=== PATIENT | female | born 1940 | race Caucasian/White ===

== ENCOUNTER → 2016-10-23 | Outpatient (CLI) | payer OTHER, MEDICARE ==
[~2016-10-23] MED LIST: ATOR-22 PO; CHOL200010 PO; MONT1TAB3 PO; MULTTAB58 PO; [UNRECOGNIZED DRUG - CODE] PO; qnasal
--- NOTE | 2016-10-23 12:50 | MAMMOGRAPHY REPORT ---
BILATERAL DIGITAL DIAGNOSTIC MAMMOGRAM TOMOSYNTHESIS WITH CAD AND TARGETED LEFT ULTRASOUND: 10/23/2016 CLINICAL HISTORY: 76-year-old woman presents for follow-up of a nodular asymmetry in the slightly me dial far posterior left breast, and a hypoechoic solid versus cystic benign appearing mass in the 5: 00 left breast on ultrasound. Also time of annual bilateral screening. TECHNIQUE: Bilateral breast tomosynthesis in addition to standard 2D mammography was performed. Curr ent study was also evaluated with a Computer Aided Detection (CAD) system. COMPARISON: Comparison is made to exams dated: 04/16/2016 ultrasound, 04/16/2016 mammogram, 10/13/19 16 mammogram, 10/11/2014 mammogram, 10/05/2013 mammogram, and 10/01/2012 mammogram - [facility]. BREAST COMPOSITION: The tissue of both breasts is heterogeneously dense, which may obscure small ma sses. FINDINGS: Again seen is a small 7 mm nodular asymmetry in the slightly medial, far posterior left br east on the 2-D CC view and corresponding tomosynthesis images. This appearance is similar dating b ack to at least 10/13/2015, therefore most likely benign. There are scattered benign rim calcificat ions in the breasts. Stable groupings of microcalcifications in the medial aspect of each breast. No new suspicious mass, architectural distortion or cluster of microcalcifications is seen. Targeted ultrasound was performed in the 5:00 left breast to reevaluate the benign-appearing circums cribed parallel hypoechoic solid versus cystic mass. In the 5:00 left breast, 1 cm from the nipple, a lobulated hypoechoic circumscribed mass is again identified measuring 4.7 x 3.0 x 3.2 mm. When c omparing to the ultrasound performed in September 2015 it has not significantly changed. Previous measu rements were 3.8 x 3.3 x 5.0 mm. Another 12 month follow-up targeted ultrasound is recommended to e nsure at least 2 years of stability to confirm benignity. IMPRESSION: ACR-BI-RADS CATEGORY 3: PROBABLY BENIGN, TARGETED ULTRASOUND ACR-BI-RADS CATEGORY 3: [place] OBABLY BENIGN 1. Stable mammographic appearance of the breasts including a probably benign nodular asymmetry in t he medial, far posterior left breast that is unchanged over 1 year. No new focal area of architectu ral distortion, suspicious mass or new microcalcifications are identified bilaterally. A 12 month f ollow-up diagnostic mammogram is recommended, particularly to ensure inclusion of the nodular asymme try in the left breast, given its far posterior location. 2. Stable sonographic appearance and size of a hypoechoic circumscribed mass in the 5:00 left breas t on ultrasound. Another 12 month follow-up targeted ultrasound is recommended to ensure stability for at least 2 years to confirm benignity. These results and recommendations were discussed with the patient at the time of the exam. She tent atively scheduled the follow-up appointment prior to leaving our department. Approximately 10% of breast cancers are not detected with mammography. A negative mammographic repor t should not delay biopsy if a clinically suggestive mass is present. Jigna Austin M.D. ay/:10/23/2016 11:10:12 Indian Blanket Weaver: Mignon Anderson, [facility] letter sent: Follow Up Recommended 3 BI-RADS Code: ACR-BI-RADS Category 3: Probably Benign Ultrasound BI-RADS: ACR-BI-RADS Category 3: P robably Benign
== END | disposition home or self-care (01) ==
LOC: C.MAMM 10:26
PROVIDERS: ATTEND Obstetrics & Gynecology
DX: Z09 Encounter for follow-up examination after completed treatment for conditions other than malignant neoplasm (principal); R92.8 Other abnormal and inconclusive findings on diagnostic imaging of breast; N63 Unspecified lump in breast

== ENCOUNTER → 2017-01-01 | Outpatient (CLI) | payer OTHER, MEDICARE ==
[~2017-01-01] MED LIST changes: +OPTIRAY 320 IV PRN
--- NOTE | 2017-01-01 09:27 | DIAGNOSTIC IMAGING REPORT ---
ABD/PELVIS IV CONTRAST ONLY CT DOSE: HISTORY: Pressure carcinoma HX RECTAL CA TECHNIQUE: Multiaxial CT images of the abdomen and pelvis were performed following the use of intravenous contrast. COMPARISON STUDY: 11/30/2015 FINDINGS: Mild chronic basilar parenchymal process. No change from the prior exam. Liver spleen and pancreas enhance uniformly. Bowel pattern is nonobstructive. There is no significant abdominal pelvic or inguinal adenopathy. Kidneys negative for mass or hydronephrosis. Stable postoperative perirectal changes. Mild degenerative change of the osseous structures with no true lytic or blastic process. IMPRESSION: No significant abnormality identified within the abdomen or pelvis. Stable postoperative change The above report was generated using voice recognition software. It may contain grammatical, syntax or spelling errors. Electronically signed by: Rickey Huerta M.D. 01/01/2017 9:26 AM Dictated Date/Time: 01/01/2017 9:24 AM
--- NOTE | 2017-01-01 10:12 | DIAGNOSTIC IMAGING REPORT ---
(CHEST) THORAX WITH CLINICAL HISTORY: 76 years-old Female presenting with HX RECTAL CA. TECHNIQUE: Multidetector CT angiography was performed after the administration of intravenous contrast. IV contrast: 119 mL of Optiray 320. COMPARISON: 11/30/2015. CT DOSE: The estimated cumulative dose is 488.45 mGy.cm. 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 On soft tissue windows, again demonstrated is a 1.8 cm right thyroid lobe nodule, similar to prior exam. No axillary, supraclavicular, mediastinal, or hilar lymphadenopathy. Mild multichamber enlargement of the heart. No pericardial or pleural effusion. Please see separately dictated CT of the abdomen and pelvis for intra-abdominal findings. On lung windows, minimal dependent changes are likely atelectasis. Airways patent. On bone windows, normal osseous structures. IMPRESSION: 1. No intrathoracic metastatic disease. 2. Stable right thyroid lobe nodule. Electronically signed by: Omega Lundberg M.D. 01/01/2017 10:10 AM Dictated Date/Time: 01/01/2017 10:04 AM
== END | disposition home or self-care (01) ==
LOC: C.CTS 08:53
PROVIDERS: ATTEND Colon & Rectal Surgery
DX: Z85.048 Personal history of other malignant neoplasm of rectum, rectosigmoid junction, and anus (principal); E04.1 Nontoxic single thyroid nodule; Z98.890 Other specified postprocedural states

== ENCOUNTER → 2017-07-09 | Outpatient (CLI) | payer OTHER, MEDICARE ==
[~2017-07-09] MED LIST changes: -OPTIRAY 320 IV PRN
--- NOTE | 2017-07-09 13:09 | DIAGNOSTIC IMAGING REPORT ---
SI JOINTS 3 OR MORE VIEWS HISTORY: 77 years-old Female SI JOINT ARTHRITIS acute pain of the right SI joint region without known injury or trauma. COMPARISON: CT abdomen and pelvis 01/01/2017 TECHNIQUE: 3 views of the SI joints FINDINGS: Sacrum appears intact without acute fracture identified. Mild degenerative changes of the bilateral SI joints without evidence of erosive changes to suggest sacroiliitis. Mild to moderate general changes of the bilateral hips. Intervertebral disc space narrowing and facet arthropathy involves the lower lumbar spine. Bones appear mildly demineralized. IMPRESSION: 1. Mild degenerative changes without acute fracture or subluxation. 2. No erosive changes to suggest sacroiliitis. 3. Osteopenic appearance of the bones. The above report was generated using voice recognition software. It may contain grammatical, syntax or spelling errors. Electronically signed by: Tl Mcdaniel M.D. 07/09/2017 1:08 PM Dictated Date/Time: 07/09/2017 1:06 PM
== END | disposition home or self-care (01) ==
LOC: C.RADBC 11:44
PROVIDERS: ATTEND Family Medicine
DX: M46.98 Unspecified inflammatory spondylopathy, sacral and sacrococcygeal region (principal)

== ENCOUNTER → 2017-10-24 | Outpatient (CLI) | payer OTHER, MEDICARE ==
--- NOTE | 2017-10-25 07:48 | MAMMOGRAPHY REPORT ---
BILATERAL DIGITAL DIAGNOSTIC MAMMOGRAM TOMOSYNTHESIS WITH CAD AND TARGETED LEFT ULTRASOUND: 10/24/2017 CLINICAL HISTORY: 12 month follow-up of left breast asymmetry and left 5:00 breast mass. The patient reports no new lumps or other complaints. Family history of breast cancer including her mother and 3 aunts. TECHNIQUE: Breast tomosynthesis in addition to standard 2D mammography was performed. Current study was also evaluated with a Computer Aided Detection (CAD) system. Bilateral CC and MLO 2D and tomosyn thesis images were obtained. COMPARISON: Comparison is made to exams dated: 10/23/2016 ultrasound, 10/23/2016 mammogram, 04/16/2016 m ammogram, 10/13/2015 mammogram, 10/11/2014 mammogram, and 10/05/2013 mammogram - [facility]. BREAST COMPOSITION: The tissue of both breasts is heterogeneously dense, which may obscure small mas ses. FINDINGS: The previously described asymmetry seen within the left medial posterior breast on the cc view is less prominent compared to prior exams and has the appearance of normal fibroglandular tissue on the current tomosynthesis images. The remainder of both breasts are stable mammographically comp ared to prior exams, without suspicious masses, calcifications, or areas of architectural distortion noted. Bilateral benign-appearing calcifications are not significantly changed, including calcificat ions within the left upper inner quadrant which are stable dating back to at least the 2008 exam. Targeted ultrasound was performed of the area of the previously seen left breast mass for which follo w-up was recommended. In the left 5:00 breast, 1 cm from the nipple, again noted is a circumscribed hypoechoic benign-appearing mass which measures 2 x 4 x 2 mm, and is stable to smaller in size dating back to the September 2015 exam, previously measuring 4 x 3 x 4 mm. Given the long-term stability, the mass is considered benign. IMPRESSION: ACR BI-RADS CATEGORY 2: BENIGN, TARGETED ULTRASOUND ACR BI-RADS CATEGORY 2: BENIGN The left medial breast asymmetry is benign and compatible with normal fibroglandular tissue. Hypoech oic benign-appearing 4 mm mass in the left 5:00 breast on ultrasound is stable to less prominent comp ared to the September 2015 exam, and is considered benign given 2 years of stability. There is no mammog raphic or targeted sonographic evidence of malignancy. A 1 year screening mammogram is recommended. The patient has been verbally notified of the results. Approximately 10% of breast cancers are not detected with mammography. A negative mammographic report should not delay biopsy if a clinically suggestive mass is present. Mae Montes M.D. ah/:10/24/2017 11:57:11 Associate Professor Of Sociology: Lila LUNDBERG(Shar)(Brian), [facility] letter sent: Normal 1/2 BI-RADS Code: ACR BI-RADS Category 2: Benign Ultrasound BI-RADS: ACR BI-RADS Category 2: Benign
== END | disposition home or self-care (01) ==
LOC: C.MAMM 10:18
PROVIDERS: ATTEND Family Medicine
DX: R92.8 Other abnormal and inconclusive findings on diagnostic imaging of breast (principal)

== ENCOUNTER 2017-10-31 09:28 | Emergency (ER) | payer OTHER, MEDICARE ==
[~2017-10-31] VITALS: Ht 154.9 cm; Wt 61.7 kg
[2017-10-31 09:32] VITALS: Ht 154.9 cm; Wt 61.7 kg
[2017-10-31] MEDS ORDERED: METOCLOPRAMIDE HCL INJ 5 MG/ML 2 ML VIAL IV STA (09:41)
[2017-10-31] MEDS ORDERED: DiphenhydrAMINE HCL 50 MG/ML VIAL IV STA (09:41)
[2017-10-31] MEDS ORDERED: SODIUM CHLORIDE 0.9% 1000ML 1,000 ML IV STA (09:41)
[2017-10-31 10:33] LABS: PTT PATIENT 27.4 SECONDS (21.0-31.0)
[2017-10-31 10:39] LABS: CALCIUM 8.4 mg/dl (8.5-10.1); CREATININE 1.11 mg/dl (0.60-1.20); POTASSIUM 3.2 mmol/L (3.5-5.1)
[2017-10-31 10:52] LABS: HEMATOCRIT 44.3 % (37-47); HEMOGLOBIN 15.3 g/dL (12.0-16.0); MEAN CELL VOLUME 92.7 fL (80-100); MEAN CORPUSCULAR HGB CONC 34.5 g/dl (32-36); MEAN PLATELET VOLUME 10.7 fL (7.4-10.4); PLATELET COUNT 51 K/uL (130-400); RED CELL DISTRIBUTION WIDTH CV 13.6 % (11.5-14.5); RED CELL DISTRIBUTION WIDTH SD 46.3 fL (36.4-46.3); WHITE BLOOD COUNT 5.67 K/uL (4.8-10.8)
[2017-10-31 10:53] LABS: BASO % 0.4 %; BASO ABS # 0.02 K/uL (0-0.2); IG# 0.01 K/uL (0.00-0.02); LYMPH % 14.5 %; LYMPH ABS # 0.82 K/uL (1.2-3.4); MONO % 2.6 %; MONO ABS # 0.15 K/uL (0.11-0.59); NEUT % 82.3 %; NEUT ABS # 4.67 K/uL (1.4-6.5)
--- NOTE | 2017-10-31 10:56 | DIAGNOSTIC IMAGING REPORT ---
HEAD WITHOUT CONTRAST (CT) CLINICAL HISTORY: 77 years-old Female presenting with paredes 3 days dizzy near syncope. TECHNIQUE: Multidetector CT imaging of the head was performed without the use of intravenous contrast. IV contrast: None. A dose lowering technique was used consistent with the principles of ALARA (as low as reasonably achievable). COMPARISON: None. CT DOSE (mGy.cm): The estimated cumulative dose is 537.48 mGy.cm. FINDINGS: Senior Design Engineer topogram: Unremarkable. Proportional ventricular and sulcal prominence, likely age-related parenchymal volume loss. Brain parenchyma normal in appearance with preserved nolasco-white differentiation. No mass effect or midline shift. No hemorrhage or acute territorial infarct. No extra-axial fluid collection. Postsurgical changes of uncinectomies and ethmoidectomies. Calvarium intact. IMPRESSION: 1. No acute intracranial abnormality. Electronically signed by: Omega Lundberg M.D. 10/31/2017 10:55 AM Dictated Date/Time: 10/31/2017 10:53 AM
[2017-10-31] MEDS ORDERED: KETOROLAC TROMETHAMINE 30 MG/ML VIAL IV STA (11:21)
[2017-10-31] MEDS ORDERED: POTASSIUM CHLORIDE 10 MEQ TABCR PO STA (11:28)
[2017-10-31] MEDS ORDERED: DOXY100C76 PO ×3 (11:31→20:36)
[2017-10-31] MEDS ORDERED: RALO1TAB2 PO ×2 (11:43)
[2017-10-31] MEDS ORDERED: LPT40 PO ×2 (11:43)
[2017-10-31] MEDS ORDERED: BECL1AER5 NAE ×2 (11:43)
[2017-10-31 12:01] VITALS: BP 131/89; PULSE 116; TEMP 37.2; O2SAT 94
--- NOTE | 2017-10-31 12:06 | EMERGENCY ROOM VISIT NOTE ---
History Report prepared by Julio Cesar: Jerod Mike Under the Supervision of: Dr. Selvin Perry M.D. First contact with patient: 09:36 Chief Complaint: HEADACHE Stated Complaint: HEADACHE, LACK OF BALANCE, TIRED History of Present Illness The patient is a 77 year old female who presents to the Emergency Room with complaints of a constant headache beginning three days ago. She has a history of rectal cancer. She localizes the majority of her pain to her occipital region. Pain is 9 out of 10 and nonradiating. The patient states that she feels lightheaded, and has had a lot of trouble standing. She states that she vomited four times two days ago. The patient denies fevers, black or bloody stools, cough, cold-like symptoms, chest pain, SOB, or heart palpitations. She denies recent trauma. She notes that she was bit by a fagan tick last week, and removed it herself. Source of History: patient Onset: Three days ago Position: head Quality: ache Timing: constant Associated Symptoms: No fevers, No cough, No chest pain, No SOB, No melena, No hematochezia Note: Negative: heart palpitations. Positive: lightheadedness. Review of Systems See HPI for pertinent positives and negatives. A total of ten systems were reviewed and were otherwise negative. Past Medical & Surgical Medical Problems: (1) HLD (hyperlipidemia) (2) Keratoconus (3) Rectal cancer Family History No pertinent family history stated. Social History Smoking Status: Former Smoker Current/Historical Medications Scheduled Atorvastatin (Lipitor), 40 MG PO DAILY Beclomethasone Dipropionate (N (Qnasl), 1 SPRAY AMANDA BID Cholecalciferol (Vitamin D), 2,000 INTUNIT PO QAM Diltiazem HCl (Diltiazem HCl), 30 MG PO BID Doxycycline Monohydrate (Monodox), 100 MG PO BID Montelukast Sodium (Singulair), 10 MG PO HS Multiple Vitamin (Multivitamin), 1 TAB PO QAM Raloxifene HCl (Raloxifene Hydrochloride), 60 MG PO DAILY Allergies Coded Allergies: Penicillins (Verified Allergy, Severe, ANAPHYLAXIS, 10/31/17) PT STATES SHE'S ALLERGIC TO ALL DERIVATIVES OF PENICILLIN Tetanus Toxoids (Verified Allergy, Intermediate, ANAPHYLAXIS, 10/31/17) Physical Exam Vital Signs Date Time Temp Pulse Resp B/P (MAP) Pulse Ox O2 Delivery O2 Flow Rate FiO2 10/31/17 12:01 37.2 116 18 131/89 94 10/31/17 11:40 116 18 131/89 94 Room Air 10/31/17 09:32 37.2 124 20 121/74 94 Room Air Physical Exam Physical Exam GENERAL: She is oriented to person, place, and time. She appears well- developed and well-nourished. She does not appear distressed. ____ HENT: Exam performed. Head: Normocephalic and atraumatic. Right Ear: External ear normal. No mastoid tenderness. Left Ear: External ear normal. No mastoid tenderness. Mouth/Throat: The oropharynx is clear and moist. No trismus in the jaw. No dental abscesses or uvula swelling. No oropharyngeal exudate or tonsillar abscesses. ____ EYES: Conjunctivae and EOM are normal. Pupils are equal, round, and reactive to light. Right eye exhibits no discharge. Left eye exhibits no discharge. No scleral icterus. ____ NECK: Normal range of motion. Neck supple. No JVD present. No spinous process tenderness present. No carotid bruit present. No rigidity. No tracheal deviation and normal range of motion present. No Brudzinski's sign and no Kernig 's sign noted. ____ CV: Normal rate, regular rhythm, normal heart sounds and intact distal pulses. There is no peripheral edema. Palpable radial pulses bue. ____ PULM/CHEST: Effort normal and breath sounds normal. No respiratory distress. No stridor. She has no wheezes. She has no rales. Chest Wall: She exhibits no tenderness. ____ ABD: The abdomen is soft. Bowel sounds are normal. She has no distension. No mass is present. There is no tenderness. There is no rebound, no guarding, no Cooley's sign and no tenderness at McBurney's point. Rovsig negative MUSC/SKEL: Normal range of motion. There is no peripheral edema, tenderness or deformity. LYMPH: No cervical adenopathy. ____ NEURO: She is alert and oriented to person, place, and time. She has normal strength. No cranial nerve deficit or sensory deficit. Coordination and gait normal. GCS eye subscore is 4. GCS verbal subscore is 5. GCS motor subscore is 6. Cerebellar tests wnl. ____ SKIN: Skin is warm and dry. She is not diaphoretic. Small area of erythema from a big bite (no bug or tick present). No fluctuance. No vesicles. No drainage or bleeding. Nikolsky negative. ____ PSYCH: She has a normal mood and affect. Her behavior is normal. Judgment and thought content normal. ____ Medical Decision & Procedures ER Provider Diagnostic Interpretation: Radiology results as stated below per my review and radiologist interpretation: HEAD WITHOUT CONTRAST (CT) FINDINGS: Watershed Manager topogram: Unremarkable. Proportional ventricular and sulcal prominence, likely age-related parenchymal volume loss. Brain parenchyma normal in appearance with preserved nolasco-white differentiation. No mass effect or midline shift. No hemorrhage or acute territorial infarct. No extra-axial fluid collection. Postsurgical changes of uncinectomies and ethmoidectomies. Calvarium intact. IMPRESSION: 1. No acute intracranial abnormality. Electronically signed by: Omega Lundberg M.D. 10/31/2017 10:55 AM Laboratory Results 10/31/17 10:00 Red Blood Count 4.78, Mean Corpuscular Volume 92.7, Mean Corpuscular Hemoglobin 32.0, Mean Corpuscular Hemoglobin Concent 34.5, Mean Platelet Volume 10.7, Neutrophils (%) (Auto) 82.3, Lymphocytes (%) (Auto) 14.5, Monocytes (%) (Auto) 2.6, Eosinophils (%) (Auto) 0.0, Basophils (%) (Auto) 0.4, Neutrophils # (Auto) 4.67, Lymphocytes # (Auto) 0.82, Monocytes # (Auto) 0.15, Eosinophils # (Auto) 0.00, Basophils # (Auto) 0.02 10/31/17 10:00 Test 10/31/17 10:00 White Blood Count 5.67 K/uL (4.8-10.8) Red Blood Count 4.78 M/uL (4.2-5.4) Hemoglobin 15.3 g/dL (12.0-16.0) Hematocrit 44.3 % (37-47) Mean Corpuscular Volume 92.7 fL (80-100) Mean Corpuscular Hemoglobin 32.0 pg (25-34) Mean Corpuscular Hemoglobin Concent 34.5 g/dl (32-36) Platelet Count 51 K/uL (130-400) Mean Platelet Volume 10.7 fL (7.4-10.4) Neutrophils (%) (Auto) 82.3 % Lymphocytes (%) (Auto) 14.5 % Monocytes (%) (Auto) 2.6 % Eosinophils (%) (Auto) 0.0 % Basophils (%) (Auto) 0.4 % Neutrophils # (Auto) 4.67 K/uL (1.4-6.5) Lymphocytes # (Auto) 0.82 K/uL (1.2-3.4) Monocytes # (Auto) 0.15 K/uL (0.11-0.59) Eosinophils # (Auto) 0.00 K/uL (0-0.5) Basophils # (Auto) 0.02 K/uL (0-0.2) RDW Standard Deviation 46.3 fL (36.4-46.3) RDW Coefficient of Variation 13.6 % (11.5-14.5) Immature Granulocyte % (Auto) 0.2 % Immature Granulocyte # (Auto) 0.01 K/uL (0.00-0.02) Blood Smear Review Platelet Estimate DECREASED Prothrombin Time 10.2 SECONDS (9.0-12.0) Prothromb Time International Ratio 1.0 (0.9-1.1) Activated Partial Thromboplast Time 27.4 SECONDS (21.0-31.0) Partial Thromboplastin Ratio 1.1 Anion Gap 9.0 mmol/L (3-11) Est Creatinine Clear Calc Drug Dose 35.7 ml/min Estimated GFR () 55.5 Estimated GFR (Non- 47.9 BUN/Creatinine Ratio 12.7 (10-20) Calcium Level 8.4 mg/dl (8.5-10.1) Magnesium Level 2.1 mg/dl (1.8-2.4) Lyme Disease IgG Antibody NEG (NEG) Lyme Disease IgM Antibody NEG (NEG) Laboratory results reviewed by me Medications Administered Medications (Trade) Dose Ordered Sig/Jodi Route Start Time Stop Time Status Last Admin Dose Admin Sodium Chloride 1,000 ml @ 125 mls/hr Q8H STAT IV 10/31/17 09:41 10/31/17 12:36 DC 10/31/17 10:08 125 MLS/HR Metoclopramide HCl (Reglan Inj) 5 mg NOW STAT IV 10/31/17 09:41 10/31/17 09:48 DC 10/31/17 10:09 5 MG Diphenhydramine HCl (Benadryl Inj) 25 mg NOW STAT IV 10/31/17 09:41 10/31/17 09:48 DC 10/31/17 10:08 25 MG Ketorolac Tromethamine (Toradol Inj) 15 mg NOW STAT IV 10/31/17 11:21 10/31/17 11:22 DC 10/31/17 11:33 15 MG Potassium Chloride (Klor-Con M10) 40 meq NOW STAT PO 10/31/17 11:28 10/31/17 11:29 DC 10/31/17 11:33 40 MEQ ECG Per My Interpretation Indication: other (lightheadedness) Rate (beats per minute): 121 Rhythm: sinus tachycardia Findings: PVC, other (AK, QTC, and QRS intervals within normal limits. No ST elevations. Baseline wander) ED Course 0937: The patient was evaluated in room A10. A complete history and physical exam was performed. 0941: Ordered Benadryl Inj 25 mg IV, Reglan Inj 25 mg IV, Sodium Chloride 1000 ml @ 125 mls/hr IV. 1116: Patient's vitals are stable. She states her headache is down to 2/10 in severity. She is no longer feeling dizzy, and is ambulating without difficulty. Repeat exam (including neurologic exam) is within normal limits. Will wait for IV fluids to be completed before discharge. Patient will be given a dose of Toradol to completely relieve headache. She will be discharged with a prescription for Antivert. 1121: Ordered Toradol Inj 15 mg IV. 1126: Discussed the patient's case with Dr. Senior, pathology. Patient's platelet count is low. Peripheral blood spear shows cytoplasmic inclusions in the neutrophils consistent with ehrlichiosis. Given peripheral blood smears, thrombocytopenia, and recent tick bite, the patient will be placed on Doxycycline. Confirmatory lab testing ordered. Potassium replaced in the emergency department. DISCHARGE - Plan of care discussed with patient and questions answered. The patient was given both verbal and printed discharge instructions. The patient verbalized understanding and ability to comply. The patient is to seek outpatient follow up as noted in the discharge instructions. The patient verbalized understanding and ability to comply. The patient is discharged in stable condition. The patient was instructed to return for worsening symptoms. 1128: Ordered Klor-Con M10 40 meq PO. Medical Decision Patient's vitals are stable. She states her headache is down to 2/10 in severity. She is no longer feeling dizzy, and is ambulating without difficulty. Repeat exam (including neurologic exam) is within normal limits. Will wait for IV fluids to be completed before discharge. Patient will be given a dose of Toradol to completely relieve headache. She will be discharged with a prescription for Antivert. DISCHARGE - Plan of care discussed with patient and questions answered. The patient was given both verbal and printed discharge instructions. The patient verbalized understanding and ability to comply. The patient is to seek outpatient follow up as noted in the discharge instructions. The patient verbalized understanding and ability to comply. The patient is discharged in stable condition. The patient was instructed to return for worsening symptoms. Discussed the patient's case with Dr. Senior. Patient's platelet count is low. Peripheral blood spear shows cytoplasmic inclusions in the neutrophils consistent with ehrlichiosis. Given peripheral blood smears, thrombocytopenia, and recent tick bite, the patient will be placed on Doxycycline. Lab testing ordered. Potassium replaced in the emergency department. Medication Reconcilliation Current Medication List: was personally reviewed by me Blood Pressure Screening Patient's blood pressure: Normal blood pressure Blood pressure disposition: Did not require urgent referral Consults Time Called: 1120 Consulting Physician: Dr. Senior - Pathology Returned Call: [phone] Discussed the patient's case with Dr. Senior. Patient's platelet count is low. Peripheral blood spear shows cytoplasmic inclusions in the neutrophils consistent with ehrlichiosis. Given peripheral blood smears, thrombocytopenia, and recent tick bite, the patient will be placed on Doxycycline. Lab testing ordered. Potassium replaced in the emergency department. Impression Primary Impression: Headache Additional Impression: Dizziness Scribe Attestation The scribe's documentation has been prepared under my direction and personally reviewed by me in its entirety. I confirm that the note above accurately reflects all work, treatment, procedures, and medical decision making performed by me. The chart was completed utilizing [employer] voice recognition software. Grammatical errors, random word insertions, pronoun errors, and incomplete sentences are an occasional consequence of this system due to software limitations, ambient noise, and hardware issues. Any formal questions or concerns about the content, text, or information contained within the body of this dictation should be directly addressed to the physician for clarification. Departure Information Dispostion Home / Self-Care Prescriptions Doxycycline Monohydrate (Monodox) 100 Mg Cap 100 MG PO BID for 14 Days, #28 CAP Prov: Selvin Perry M.D. 10/31/17 Referrals Maria De Jesus Knox D.O. (PCP) Forms HOME CARE DOCUMENTATION FORM, IMPORTANT VISIT INFORMATION Patient Instructions Dizziness Vertigo Balance Safety, ED Dizziness [facility]O, Headache Migraine Meds Lifestyle, Headache Migraine Triggers Prevent, My [facility] [place] Additional Instructions Return to the emergency department if he developed fever greater than 100.4, chest pain, difficulty breathing, headache recurs, lose consciousness, fall, have seizure, have extreme dizziness, inability to walk. Problem Qualifiers Primary Impression: Headache Headache type: unspecified Headache chronicity pattern: unspecified pattern Intractability: not intractable Qualified Codes: R51 - Headache
[2017-11-03] MEDS ORDERED: DXY100 PO ×2 (09:18)
== END 2017-10-31 12:02 | disposition home or self-care (01) ==
LOC: C.EDB 09:30 → C.EDA 12:02
DX: R51 Headache (principal); R42 Dizziness and giddiness; E78.5 Hyperlipidemia, unspecified; Z85.048 Personal history of other malignant neoplasm of rectum, rectosigmoid junction, and anus; Z79.899 Other long term (current) drug therapy; Z88.0 Allergy status to penicillin; Z88.7 Allergy status to serum and vaccine; Z87.891 Personal history of nicotine dependence

== ENCOUNTER 2017-10-31 19:18 | Inpatient (IN) | payer OTHER, MEDICARE ==
[~2017-10-31] VITALS: Ht 154.9 cm; Wt 64.3 kg
[~2017-10-31 19:18] MED LIST changes: +BECL1AER5 NAE; +DOXY100C76 PO; +LPT40 PO; +RALO1TAB2 PO
[2017-10-31] MEDS ORDERED: SODIUM CHLORIDE 0.9% 1000ML 500 ML IV ONE ×2 (19:39)
[2017-10-31] MEDS ORDERED: VANCOMYCIN 1GM ED/ASU OMNICELL IV STA (19:39)
[2017-10-31] MEDS ORDERED: SODIUM CHLORIDE 0.9% 1000ML 1,000 ML IV ONE (19:39)
--- NOTE | 2017-10-31 19:42 | EMERGENCY ROOM VISIT NOTE ---
History Report prepared by Julio Cesar: Aylin Hodge Under the Supervision of: Dr. Fred Atkinson M.D. 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 Positive fever of 102.6, weakness. Negative chest pain, rash, sore throat, recent long car or plane travel, weight gain, or leg swelling. She was seen at the ED earlier today and was placed on Doxycycline for ehrlichiosis. She is accompanied by her who reports that after her discharge from the ED, she suddenly seemed unresponsive and more weak than usual. She notes took 1 capsule of her Doxycycline at 1500 today. She does not use oxygen at home. Review of her prior blood work showed a normal white count, low platelet count and normal kidney function. 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 Review of Systems See HPI for pertinent positives and negatives. A total of ten systems were reviewed and were otherwise negative. Past Medical & Surgical Medical Problems: (1) HLD (hyperlipidemia) (2) [place] (3) Rectal cancer Family History No pertinent family history Social History Smoking Status: Former Smoker Alcohol Use: occasionally Marital Status: Housing Status: lives with significant other Occupation Status: retired Current/Historical Medications Scheduled Atorvastatin (Lipitor), 40 MG PO DAILY Beclomethasone Dipropionate (N (Qnasl), 1 SPRAY AMANDA BID Cholecalciferol (Vitamin D), 2,000 INTUNIT PO QAM Diltiazem HCl (Diltiazem HCl), 30 MG PO BID Doxycycline Monohydrate (Monodox), 100 MG PO BID Montelukast Sodium (Singulair), 10 MG PO HS Multiple Vitamin (Multivitamin), 1 TAB PO QAM Raloxifene HCl (Raloxifene Hydrochloride), 60 MG PO DAILY Allergies Coded Allergies: Penicillins (Verified Allergy, Severe, ANAPHYLAXIS-SEE COMMENT, 10/31/17) PT STATES SHE'S ALLERGIC TO ALL DERIVATIVES OF PENICILLIN Tetanus Toxoids (Verified Allergy, Intermediate, ANAPHYLAXIS, 10/31/17) Physical Exam Vital Signs Date Time Temp Pulse Resp B/P (MAP) Pulse Ox O2 Delivery O2 Flow Rate FiO2 10/31/17 22:17 Nasal Cannula 4.0 10/31/17 22:00 114 18 120/86 93 Nasal Cannula 4.0 10/31/17 21:30 119 18 109/73 91 Nasal Cannula 4.0 10/31/17 21:00 114 18 112/71 91 Nasal Cannula 4.0 10/31/17 20:52 37.8 10/31/17 20:13 125 18 128/92 93 Nasal Cannula 3.0 10/31/17 20:11 126 10/31/17 19:43 88 Room Air 10/31/17 19:20 92 Nasal Cannula 4.0 10/31/17 19:19 39.4 132 20 133/87 88 Room Air 10/31/17 19:19 88 Room Air Physical Exam GENERAL: Awake, alert, well-appearing, mild distress HENT: Normocephalic, atraumatic. EYES: Normal conjunctiva. Sclera non-icteric. PERRL. No anisocoria. NECK: Supple. No nuchal rigidity. FROM. RESPIRATORY: CTAB, no rhonchi, wheezing, crackles CARDIAC: Tachycardic but regular, no MRG ABDOMEN: Soft, NTND, BS+ MSK: No chest wall TTP, no LE edema. Negative Homans's sign. NEURO: GCS 15, CN 2-12 intact, moves all 4s on command SKIN: No rash or jaundice noted. Medical Decision & Procedures ER Provider Diagnostic Interpretation: Radiology results as stated below per my review and radiologist interpretation: SINGLE VIEW CHEST CLINICAL HISTORY: Sepsis. FINDINGS: An AP, portable, upright chest radiograph is correlated with chest CT dated 01/01/2017. The examination is degraded by portable technique and patient rotation. The heart is enlarged. The pulmonary vasculature is noncongested. Chronic interstitial thickening is similar to previous. There are low lung volumes and elevation of right hemidiaphragm. There is left basilar consolidation. No large pleural effusion or pneumothorax is seen. The skeletal structures are osteopenic. The bony thorax is grossly intact. IMPRESSION: 1. Cardiomegaly without radiographic evidence of congestive failure. 2. There is left basilar consolidation, likely representing pneumonia/aspiration pneumonitis. Clinical correlation will be required and radiographic follow-up to resolution is recommended. Electronically signed by: Alfa Solano M.D. 10/31/2017 8:29 PM Laboratory Results 10/31/17 19:57 Red Blood Count 4.41, Mean Corpuscular Volume 91.8, Mean Corpuscular Hemoglobin 31.1, Mean Corpuscular Hemoglobin Concent 33.8, Mean Platelet Volume 11.0, Neutrophils (%) (Auto) 79.5, Lymphocytes (%) (Auto) 16.5, Monocytes (%) (Auto) 3.4, Eosinophils (%) (Auto) 0.0, Basophils (%) (Auto) 0.6, Neutrophils # (Auto) 2.80, Lymphocytes # (Auto) 0.58, Monocytes # (Auto) 0.12, Eosinophils # (Auto) 0.00, Basophils # (Auto) 0.02 10/31/17 19:57 Test 10/31/17 19:57 10/31/17 20:00 10/31/17 20:49 10/31/17 21:59 White Blood Count 3.52 K/uL (4.8-10.8) Red Blood Count 4.41 M/uL (4.2-5.4) Hemoglobin 13.7 g/dL (12.0-16.0) Hematocrit 40.5 % (37-47) Mean Corpuscular Volume 91.8 fL (80-100) Mean Corpuscular Hemoglobin 31.1 pg (25-34) Mean Corpuscular Hemoglobin Concent 33.8 g/dl (32-36) Platelet Count 28 K/uL (130-400) Mean Platelet Volume 11.0 fL (7.4-10.4) Neutrophils (%) (Auto) 79.5 % Lymphocytes (%) (Auto) 16.5 % Monocytes (%) (Auto) 3.4 % Eosinophils (%) (Auto) 0.0 % Basophils (%) (Auto) 0.6 % Neutrophils # (Auto) 2.80 K/uL (1.4-6.5) Lymphocytes # (Auto) 0.58 K/uL (1.2-3.4) Monocytes # (Auto) 0.12 K/uL (0.11-0.59) Eosinophils # (Auto) 0.00 K/uL (0-0.5) Basophils # (Auto) 0.02 K/uL (0-0.2) RDW Standard Deviation 46.2 fL (36.4-46.3) RDW Coefficient of Variation 13.7 % (11.5-14.5) Immature Granulocyte % (Auto) 0.0 % Immature Granulocyte # (Auto) 0.00 K/uL (0.00-0.02) Platelet Estimate SIGNIFIC DECREASED Prothrombin Time 10.2 SECONDS (9.0-12.0) Prothromb Time International Ratio 1.0 (0.9-1.1) Activated Partial Thromboplast Time 27.9 SECONDS (21.0-31.0) Partial Thromboplastin Ratio 1.1 Venous Blood pH 7.44 (7.36-7.41) Venous Blood Partial Pressure CO2 36 mmHg (38.0-50.0) Venous Blood Partial Pressure O2 27 mmHg Venous Blood HCO3 24 mmol/L Venous Blood Oxygen Saturation < 60.0 % Venous Blood Base Excess -0.1 mEq/L Anion Gap 9.0 mmol/L (3-11) Est Creatinine Clear Calc Drug Dose 47.6 ml/min Estimated GFR () 76.6 Estimated GFR (Non- 66.1 BUN/Creatinine Ratio 17.8 (10-20) Calcium Level 7.7 mg/dl (8.5-10.1) Magnesium Level 1.8 mg/dl (1.8-2.4) Total Bilirubin 0.6 mg/dl (0.2-1) Aspartate Amino Transf (AST/SGOT) 199 U/L (15-37) Alanine Aminotransferase (ALT/SGPT) 69 U/L (12-78) Alkaline Phosphatase 61 U/L (45-117) Total Protein 6.4 gm/dl (6.4-8.2) Albumin 2.9 gm/dl (3.4-5.0) Globulin 3.5 gm/dl (2.5-4.0) Albumin/Globulin Ratio 0.8 (0.9-2) Procalcitonin 0.86 ng/ml (0-0.5) Chemistry Specimen Hemolysis Bedside Lactic Acid Venous 0.85 mmol/L (0.90-1.70) Laboratory results reviewed by me Medications Administered Medications (Trade) Dose Ordered Sig/Jodi Route Start Time Stop Time Status Last Admin Dose Admin Sodium Chloride 1,000 ml @ 999 mls/hr Q1H1M ONCE IV 10/31/17 19:39 10/31/17 20:39 DC 10/31/17 20:02 999 MLS/HR Sodium Chloride 500 ml @ 999 mls/hr Q31M ONCE IV 10/31/17 19:39 10/31/17 20:09 DC 10/31/17 20:24 999 MLS/HR Sodium Chloride 500 ml @ 999 mls/hr Q31M ONCE IV 10/31/17 19:39 10/31/17 20:09 DC 10/31/17 20:54 999 MLS/HR Vancomycin HCl (Vancomycin 1gm Ed/Asu Omnicell) 1 gm ONE STAT IV 10/31/17 19:39 10/31/17 19:42 DC 10/31/17 20:27 1 GM Acetaminophen (Tylenol Tab) 650 mg ONE ONCE PO 10/31/17 19:45 10/31/17 19:46 DC 10/31/17 20:09 650 MG Cefepime HCl 1000 mg/Dextrose 111 ml @ 200 mls/hr ONE STAT IV 10/31/17 19:43 10/31/17 20:16 DC 10/31/17 21:28 200 MLS/HR Metronidazole (Flagyl / Nss) 500 mg NOW STAT IV 10/31/17 19:43 10/31/17 19:45 DC 10/31/17 20:19 500 MG Calcium Carbonate (Tums Chew Tab) 1,500 mg ONE STAT PO 10/31/17 20:51 10/31/17 20:52 DC 10/31/17 21:39 1,500 MG Calcium Gluconate (Calcium Gluconate 10%) 2,000 mg NOW STAT IV 10/31/17 20:51 10/31/17 20:52 DC 10/31/17 21:31 2,000 MG Potassium Chloride 100 ml @ 100 mls/hr NOW STAT IV 10/31/17 21:17 10/31/17 22:16 DC 10/31/17 21:52 100 MLS/HR Potassium Chloride (Klor-Con M10) 40 meq STK-MED ONCE .ROUTE 10/31/17 21:50 10/31/17 21:51 DC 10/31/17 21:54 40 MEQ ECG Per My Interpretation Indication: SOB/dyspnea Rate (beats per minute): 125 Rhythm: sinus tachycardia Findings: left axis deviation, other (short QRS, QTC prolonged ) ED Course 1933: The patient was evaluated in room B9. A complete history and physical exam was performed. 1942: I reviewed her prior blood work. She had a normal white count, low platelet count and normal kidney function. 2019: I checked on the patient at this time. She has no complaints at this time. 2118: Discussed the patient's case with Dr. Brady Aguilar, [facility] Hospitalist. The patient will be evaluated for further treatment and disposition. 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 Positive fever of 102.6, weakness. Negative chest pain, rash, sore throat, recent long car or plane travel, weight gain, or leg swelling. Differential diagnosis: Etiologies such as viral syndrome, otitis, pharyngitis, pneumonia, influenza, meningitis, urinary tract infection, sepsis, bacteremia, as well as others were entertained. Patient was seen and evaluated the bedside. Of note the patient recently been seen earlier today for headache. The patient was recently diagnosed with ehrlichiosis and started on doxycycline. Patient apparently had some increased weakness and decreased alertness. On exam she is awake and alert. Mild distress that she is requiring submental oxygen. Patient was noted to be hypoxic in triage and is tachycardic. Patient denies any recent travel and no active cancers. Patient has no lower extremity swelling and has not noticed any weight gain. No recent changes the doxycycline. Of note the patient was febrile. I believe less likely to be related to PE given the patient's fever. Patient did have blood work completed, IV fluids, troponin, chest x-ray, blood and urine cultures, urinalysis, and empiric antibiotics were also ordered. Patient also did have a VBG and lactate. Patient's lactate was normal. VBG fairly unremarkable. Patient does have some hypocalcemia, hypokalemia, thrombocytopenia and leukopenia. The patient's chest x-ray was concerning for possible aspiration pneumonia versus pneumonitis at the left base. Given that the patient is requiring oxygen and does have some lab abnormalities I believe she would benefit from further inpatient treatment. I did discuss the case with the on-call hospitalist who agreed to further evaluate and treat the patient. Patient was admitted to the medicine service. Medication Reconcilliation Current Medication List: was personally reviewed by me Blood Pressure Screening Patient's blood pressure: Normal blood pressure Blood pressure disposition: Did not require urgent referral Consults Time Called: 2111 Consulting Physician: Dr. Brady Aguilar [facility] Hospitalist Returned Call: [id number] Discussed the patient's case with Dr. Brady Aguilar [facility] Hospitalist. The patient will be evaluated for further treatment and disposition. Impression Primary Impression: Pneumonia Additional Impressions: Hypoxia Sepsis Leukopenia Hypokalemia Hypocalcemia Thrombocytopenia Ehrlichiosis Critical Care I have personally spent greater than 45 minutes of critical care time in the direct management of this patient. This includes bedside care, interpretation of diagnostic studies, and testing, discussion with consultants, patient, and family members, and other required patient management activities. This 45 minutes is in excess of all separately billable procedures. Scribe Attestation The scribe's documentation has been prepared under my direction and personally reviewed by me in its entirety. I confirm that the note above accurately reflects all work, treatment, procedures, and medical decision making performed by me. Departure Information Dispostion Being Evaluated By Hospitalist (Dr. Brady Aguilar [facility] Hospitalist ) Referrals Maria De Jesus Knox D.O. (PCP) Patient Instructions My [facility] Problem Qualifiers Primary Impression: Pneumonia Pneumonia type: due to unspecified organism Laterality: left Lung location : lower lobe of lung Qualified Codes: J18.1 - Lobar pneumonia, unspecified organism Additional Impressions: Sepsis Sepsis type: sepsis due to unspecified organism Qualified Codes: A41.9 - Sepsis, unspecified organism Leukopenia Leukopenia type: neutropenia Neutropenia type: due to infection Qualified Codes: D70.3 - Neutropenia due to infection
[2017-10-31] MEDS ORDERED: METRONIDAZOLE 500MG / 100ML NSS IV STA (19:43)
[2017-10-31] MEDS ORDERED: CEFEPIME IV 1,000 MG in DEXTROSE 5% 100ML 100 ML IV STA (19:43)
[2017-10-31] MEDS ORDERED: ACETAMINOPHEN 325 MG TAB PO ONE (19:45)
--- NOTE | 2017-10-31 20:30 | DIAGNOSTIC IMAGING REPORT ---
SINGLE VIEW CHEST CLINICAL HISTORY: Sepsis. FINDINGS: An AP, portable, upright chest radiograph is correlated with chest CT dated 01/01/2017. The examination is degraded by portable technique and patient rotation. The heart is enlarged. The pulmonary vasculature is noncongested. Chronic interstitial thickening is similar to previous. There are low lung volumes and elevation of right hemidiaphragm. There is left basilar consolidation. No large pleural effusion or pneumothorax is seen. The skeletal structures are osteopenic. The bony thorax is grossly intact. IMPRESSION: 1. Cardiomegaly without radiographic evidence of congestive failure. 2. There is left basilar consolidation, likely representing pneumonia/aspiration pneumonitis. Clinical correlation will be required and radiographic follow-up to resolution is recommended. Electronically signed by: Alfa Solano M.D. 10/31/2017 8:29 PM Dictated Date/Time: 10/31/2017 8:27 PM
[2017-10-31 20:31] LABS: PTT PATIENT 27.9 SECONDS (21.0-31.0)
[2017-10-31] MEDS ORDERED: DOXY100C76 PO ×2 (20:36)
[2017-10-31 20:44] LABS: ALBUMIN 2.9 gm/dl (3.4-5.0); CALCIUM 7.7 mg/dl (8.5-10.1); CREATININE 0.85 mg/dl (0.60-1.20); POTASSIUM 3.3 mmol/L (3.5-5.1); TOTAL PROTEIN 6.4 gm/dl (6.4-8.2)
[2017-10-31] MEDS ORDERED: CALCIUM GLUCONATE 10% 10 ML VIAL IV STA (20:51)
[2017-10-31] MEDS ORDERED: CALCIUM CARBONATE 500 MG CHEWABLE PO STA (20:51)
[2017-10-31 20:58] LABS: BASO % 0.6 %; BASO ABS # 0.02 K/uL (0-0.2); HEMATOCRIT 40.5 % (37-47); HEMOGLOBIN 13.7 g/dL (12.0-16.0); LYMPH % 16.5 %; LYMPH ABS # 0.58 K/uL (1.2-3.4); MEAN CELL VOLUME 91.8 fL (80-100); MEAN CORPUSCULAR HEMOGLOBIN 31.1 pg (25-34); MEAN CORPUSCULAR HGB CONC 33.8 g/dl (32-36); MONO % 3.4 %; MONO ABS # 0.12 K/uL (0.11-0.59); NEUT % 79.5 %; PLATELET COUNT 28 K/uL (130-400); RED CELL DISTRIBUTION WIDTH CV 13.7 % (11.5-14.5); RED CELL DISTRIBUTION WIDTH SD 46.2 fL (36.4-46.3); WHITE BLOOD COUNT 3.52 K/uL (4.8-10.8)
[2017-10-31] MEDS ORDERED: POTASSIUM CHLORIDE 20 MEQ TABCR PO STA (21:17)
[2017-10-31] MEDS ORDERED: POTASSIUM CHLR 10 MEQ / WTR 100 ML IV STA (21:17)
[2017-10-31] MEDS ORDERED: POTASSIUM CHLORIDE 10 MEQ TABCR ONE (21:50)
--- NOTE | 2017-10-31 22:13 | History and Physical ---
History & Physical Date & Time of Service: October 31, 2017 at 22:12 Chief Complaint: SOB Primary Care Physician: Maria De Jesus Knox D.O. History of Present Illness Source: patient, family 77 yo F w/ pMHx HTN, HLD, history of cured rectal cancer s/p surgery presented to the ED with symptoms of fever, fatigue and shortness of breath. She notes that she had a tick bit 4 days ago, after which these symptoms commenced. She was assessed in the ED yesterday afternoon where she was noted to be thrombocytopenic and her peripheral blood smear revealed intra-leukocytic inclusions consistent with Ehrlichiosis. She was prescribed doxycycline and discharged, started on doxycycline and left briefly. However, she returned a few hours later feeling ill which significant dyspnea at rest noted by her son. On this subsequent ED visit, assessment was notable for fever, tachycardia, hypoxia, but no hypotension. There was a further drop in her platelets and new leukopenia was noted. She He otherwise denies headaches (she had had one earlier in the morning) CP, palpitations, abdominal pain, lower extremity swelling, rashes or issues with voiding or stooling. ROS is unremarkable except as noted above. Past Medical/Surgical History Medical Problems: (1) Dizziness (2) Headache (3) HLD (hyperlipidemia) (4) Keratoconus (5) Rectal cancer Family History No pertinent family history non contributory Social History Smoking Status: Former Smoker Smokeless Tobacco Use: No Alcohol Use: none Drug Use: none Marital Status: Housing status: lives alone Occupational Status: retired Immunizations History of Influenza Vaccine: Yes History of Tetanus Vaccine?: allergic to immunization History of Pneumococcal: Yes History of Hepatitis B Vaccine: No Allergies Coded Allergies: Penicillins (Verified Allergy, Severe, ANAPHYLAXIS-SEE COMMENT, 10/31/17) PT STATES SHE'S ALLERGIC TO ALL DERIVATIVES OF PENICILLIN Tetanus Toxoids (Verified Allergy, Intermediate, ANAPHYLAXIS, 10/31/17) Home Medications Scheduled Atorvastatin (Lipitor), 40 MG PO DAILY Beclomethasone Dipropionate (N (Qnasl), 1 SPRAY AMANDA BID Cholecalciferol (Vitamin D), 2,000 INTUNIT PO QAM Diltiazem HCl (Diltiazem HCl), 30 MG PO BID Doxycycline Monohydrate (Monodox), 100 MG PO BID Montelukast Sodium (Singulair), 10 MG PO HS Multiple Vitamin (Multivitamin), 1 TAB PO QAM Raloxifene HCl (Raloxifene Hydrochloride), 60 MG PO DAILY Physical Exam Vital Signs Date Time Temp Pulse Resp B/P (MAP) Pulse Ox O2 Delivery O2 Flow Rate FiO2 10/31/17 21:30 119 18 109/73 91 Nasal Cannula 4.0 10/31/17 21:00 114 18 112/71 91 Nasal Cannula 4.0 10/31/17 20:52 37.8 10/31/17 20:13 125 18 128/92 93 Nasal Cannula 3.0 10/31/17 20:11 126 10/31/17 19:43 88 Room Air 10/31/17 19:20 92 Nasal Cannula 4.0 10/31/17 19:19 39.4 132 20 133/87 88 Room Air 10/31/17 19:19 88 Room Air General Appearance: WD/WN, no apparent distress, + pertinent finding ( Supplemental O2 via NC) Head: normocephalic, atraumatic Eyes: sclerae normal ENT: hearing grossly normal Neck: supple, no adenopathy, + pertinent finding (Dry mucous membrane) Respiratory/Chest: no respiratory distress, no accessory muscle use, + decreased breath sounds Cardiovascular: regular rate, rhythm, no murmur Abdomen/GI: normal bowel sounds, non tender, soft Back: normal inspection Extremities/Musculoskelatal: no calf tenderness, no pedal edema Neurologic/Psych: alert, normal mood/affect, oriented x 3 Skin: normal color, warm/dry, no rash Diagnostics Laboratory Results Results Past 24 Hours Test 10/31/17 19:57 10/31/17 20:00 10/31/17 20:49 Range/Units White Blood Count 3.52 4.8-10.8 K/uL Red Blood Count 4.41 4.2-5.4 M/uL Hemoglobin 13.7 12.0-16.0 g/dL Hematocrit 40.5 37-47 % Mean Corpuscular Volume 91.8 80-100 fL Mean Corpuscular Hemoglobin 31.1 25-34 pg Mean Corpuscular Hemoglobin Concent 33.8 32-36 g/dl Platelet Count 28 130-400 K/uL Mean Platelet Volume 11.0 7.4-10.4 fL Neutrophils (%) (Auto) 79.5 % Lymphocytes (%) (Auto) 16.5 % Monocytes (%) (Auto) 3.4 % Eosinophils (%) (Auto) 0.0 % Basophils (%) (Auto) 0.6 % Neutrophils # (Auto) 2.80 1.4-6.5 K/uL Lymphocytes # (Auto) 0.58 1.2-3.4 K/uL Monocytes # (Auto) 0.12 0.11-0.59 K/uL Eosinophils # (Auto) 0.00 0-0.5 K/uL Basophils # (Auto) 0.02 0-0.2 K/uL RDW Standard Deviation 46.2 36.4-46.3 fL RDW Coefficient of Variation 13.7 11.5-14.5 % Immature Granulocyte % (Auto) 0.0 % Immature Granulocyte # (Auto) 0.00 0.00-0.02 K/uL Platelet Estimate SIGNIFIC DECREASED Prothrombin Time 10.2 9.0-12.0 SECONDS Prothromb Time International Ratio 1.0 0.9-1.1 Activated Partial Thromboplast Time 27.9 21.0-31.0 SECONDS Partial Thromboplastin Ratio 1.1 Venous Blood pH 7.44 7.36-7.41 Venous Blood Partial Pressure CO2 36 38.0-50.0 mmHg Venous Blood Partial Pressure O2 27 mmHg Venous Blood HCO3 24 mmol/L Venous Blood Oxygen Saturation < 60.0 % Venous Blood Base Excess -0.1 mEq/L Sodium Level 139 136-145 mmol/L Potassium Level 3.3 3.5-5.1 mmol/L Chloride Level 109 98-107 mmol/L Carbon Dioxide Level 21 21-32 mmol/L Anion Gap 9.0 3-11 mmol/L Blood Urea Nitrogen 15 7-18 mg/dl Creatinine 0.85 0.60-1.20 mg/dl Est Creatinine Clear Calc Drug Dose 47.6 ml/min Estimated GFR () 76.6 Estimated GFR (Non- 66.1 BUN/Creatinine Ratio 17.8 10-20 Random Glucose 134 70-99 mg/dl Calcium Level 7.7 8.5-10.1 mg/dl Magnesium Level 1.8 1.8-2.4 mg/dl Total Bilirubin 0.6 0.2-1 mg/dl Aspartate Amino Transf (AST/SGOT) 199 15-37 U/L Alanine Aminotransferase (ALT/SGPT) 69 12-78 U/L Alkaline Phosphatase 61 45-117 U/L Total Protein 6.4 6.4-8.2 gm/dl Albumin 2.9 3.4-5.0 gm/dl Globulin 3.5 2.5-4.0 gm/dl Albumin/Globulin Ratio 0.8 0.9-2 Procalcitonin 0.86 0-0.5 ng/ml Chemistry Specimen Hemolysis Bedside Lactic Acid Venous 0.85 0.90-1.70 mmol/L Microbiology Results 10/31/17 Blood Culture, Received Pending 10/31/17 Blood Culture, Received Pending Diagnostic Radiology SINGLE VIEW CHEST CLINICAL HISTORY: Sepsis. FINDINGS: An AP, portable, upright chest radiograph is correlated with chest CT dated 01/01/2017. The examination is degraded by portable technique and patient rotation. The heart is enlarged. The pulmonary vasculature is noncongested. Chronic interstitial thickening is similar to previous. There are low lung volumes and elevation of right hemidiaphragm. There is left basilar consolidation. No large pleural effusion or pneumothorax is seen. The skeletal structures are osteopenic. The bony thorax is grossly intact. IMPRESSION: 1. Cardiomegaly without radiographic evidence of congestive failure. 2. There is left basilar consolidation, likely representing pneumonia/aspiration pneumonitis. Clinical correlation will be required and radiographic follow-up to resolution is recommended. (CHEST) THORAX WITHOUT CT DOSE: 191.76 mGycm HISTORY: Pneumonia. Follow-up. TECHNIQUE: Multiaxial CT images of the chest were performed without contrast. A dose lowering technique was utilized adhering to the principles of ALARA. COMPARISON: Chest CT 01/01/2017. FINDINGS: Stable 1.8 cm right thyroid nodule. No mediastinal or hilar lymphadenopathy. Trace bilateral pleural effusions. Trace pericardial fluid. The heart is normal in size. The visualized liver, spleen, and adrenal glands are unremarkable. No fractures within the visualized osseous structures. No pneumothorax. The central airways are patent. Patchy areas of consolidation within the bases of the bilateral lower lobes. There is interlobular septal thickening most pronounced within the mid to lower lung zones. A few small scattered nodular densities are also seen within the perihilar locations. Dominant nodule seen within the right lower lobe on image 175 and measures 5 mm. This favors an infectious process. IMPRESSION: 1. Trace bilateral pleural effusions and a trace pericardial effusion. 2. Patchy areas of consolidation within the base of the lower lobes. This favors a pneumonia. 3. Interlobular septal thickening with a few scattered nodular densities seen within the perihilar and lower lung zones. This also likely represents a pneumonitis. 4. Follow-up chest x-ray in 2-3 months is recommended to ensure resolution. ABDOMEN AND PELVIS CT WITHOUT CONTRAST CT DOSE: 625.72 mGycm HISTORY: Abnormal LFTs TECHNIQUE: Multiaxial CT images of the abdomen and pelvis were performed without contrast. A dose lowering technique was utilized adhering to the principles of ALARA. COMPARISON STUDY: Abdomen and pelvis CT 01/01/2017. FINDINGS: Trace bilateral pleural effusions and patchy bilateral lower lobe densities with reticulonodular interstitial thickening. No pneumoperitoneum. No pneumatosis. No suspicious lytic or blastic osseous lesions. The unenhanced liver, pancreas, spleen, and adrenal glands are unremarkable. No renal or ureteral stones. No hydronephrosis. A few diverticula at the duodenum. Questionable thickening of the gallbladder wall which is not well-visualized due to streak artifact at this location. No retroperitoneal lymphadenopathy. Normal caliber abdominal aorta. The bladder, uterus, and adnexa are within normal limits. Suture material at the rectosigmoid junction. Suboptimal evaluation for bowel pathology due to the lack of intravenous and oral contrast. However, there is no definite bowel wall thickening or obstruction. Moderate stool throughout the colon. IMPRESSION: 1. No bowel wall thickening or obstruction. 2. Moderate stool within the colon. 3. Questionable thickening of the gallbladder wall which is not well visualized due to the streak artifact at this location. If the patient is complaining of right upper quadrant pain then consider follow-up abdominal ultrasound for further evaluation. 4. Patchy bilateral lower lobe densities and trace bilateral pleural effusions suggestive of a pneumonia Impression Assessment and Plan 77 yo F w/ pMHx HTN, HLD, history of cured rectal cancer s/p surgery presented to the ED with symptoms of fever, fatigue and shortness of breath. Acute hypoxic respiratory failure - Supplemental O2, maintain sats >92%,wean as tolerated Sepsis secondary to ehrlichiosis - Empiric abx: vancomycin, ceftriaxone ([employer] penetration), doxycycline - IVF NSS @ 100cc/hr - BCx pending - ID consulted Dropping blood counts - even compared to earlier ED visit - Type and screen ordered - DIC panel ordered - Heme/onc consulted HTN - Continue diltiazem HLD - Continue atorvastatin Leg cramping -Optimize potassium, magnesium and calcium VTE - SCDs - Chem ppx contraindicated due to low platelets FULL CODE Attending addendum: I have physically seen this patient, have supervised the medical residents activities, and agree with the H&P unless as otherwise noted. Assessment and Plan: Sepsis/acute respiratory failure with hypoxia/pneumonia right middle lobe/LLL/ peripheral smear suggesting ehrlichiosis-- Vancomycin IV per pharmacokinetic monitoring, ceftriaxone IV and doxycycline IV. Follow blood culture and sensitivity report. Consult infectious disease. Thrombocytopenia/platelet count is decreased to 28-- Type and screen DIC panel Consult heme oncology Hypertension-- Continue diltiazem with hold parameters. Hyperlipidemia-- Continue atorvastatin. Leg cramps-- potassium 3.3 Upon admission optimize orally and IV and repeat in a.m. Advanced Directives Existing Advance Directive: No Existing Living Will: No Existing Power of Ore Crushing Dust Collector: No Resuscitation Status FULL VTE Prophylaxis Will order VTE Prophylaxis: Yes Resident Tracking Resident Involvement: Resident Care Provided Care Provided: Adult Hospital Medicine
[2017-10-31 22:17] VITALS: Ht 154.9 cm; Wt 64.3 kg
[2017-10-31 23:00] VITALS: O2SAT 93
[2017-10-31] MEDS ORDERED: POLYETHYLENE (MIRALAX) 17 GM PACK PO PRN (23:00)
[2017-10-31] MEDS ORDERED: VANCOMYCIN CONSULT ACTIVE PRN (23:00)
[2017-10-31] MEDS ORDERED: ALUMINUM/MAGNESIUM/SIMETH (MAALOX MAX) 30 ML UDC PO PRN (23:00)
[2017-10-31] MEDS ORDERED: ONDANSETRON INJ 2 MG/ML 2 ML VIAL IV PRN (23:00)
[2017-10-31] MEDS ORDERED: MAGNESIUM HYDROXIDE SUSP 30 ML UDC PO PRN (23:00)
[2017-11-01] VITALS (7 sets, daily range): BP systolic 104–155; BP diastolic 69–84; PULSE 95–114; TEMP 36.4–37.1; O2SAT 92–95
[2017-11-01] MEDS ORDERED: CEFTRIAXONE SOD INJ 1 GM in DEXTROSE 5% ADD-VANTAGE 50ML 50 ML IV SCH (02:00)
[2017-11-01] MEDS: SODIUM CHLORIDE 0.9% 1000ML 1,000 ML IV SCH ×2 (02:04→10:37)
[2017-11-01] MEDS: ACETAMINOPHEN 325 MG TAB PO PRN ×3 (05:58→21:21)
[2017-11-01 06:51] LABS: HEMATOCRIT 36.3 % (37-47); HEMOGLOBIN 12.4 g/dL (12.0-16.0); MEAN CELL VOLUME 92.4 fL (80-100); MEAN CORPUSCULAR HEMOGLOBIN 31.6 pg (25-34); MEAN CORPUSCULAR HGB CONC 34.2 g/dl (32-36); MEAN PLATELET VOLUME 11.7 fL (7.4-10.4); PLATELET COUNT 24 K/uL (130-400); RED CELL DISTRIBUTION WIDTH CV 14.3 % (11.5-14.5); RED CELL DISTRIBUTION WIDTH SD 48.8 fL (36.4-46.3); WHITE BLOOD COUNT 3.56 K/uL (4.8-10.8)
--- NOTE | 2017-11-01 07:12 | DIAGNOSTIC IMAGING REPORT ---
(CHEST) THORAX WITHOUT CT DOSE: 191.76 mGycm HISTORY: Pneumonia. Follow-up. TECHNIQUE: Multiaxial CT images of the chest were performed without contrast. A dose lowering technique was utilized adhering to the principles of ALARA. COMPARISON: Chest CT 01/01/2017. FINDINGS: Stable 1.8 cm right thyroid nodule. No mediastinal or hilar lymphadenopathy. Trace bilateral pleural effusions. Trace pericardial fluid. The heart is normal in size. The visualized liver, spleen, and adrenal glands are unremarkable. No fractures within the visualized osseous structures. No pneumothorax. The central airways are patent. Patchy areas of consolidation within the bases of the bilateral lower lobes. There is interlobular septal thickening most pronounced within the mid to lower lung zones. A few small scattered nodular densities are also seen within the perihilar locations. Dominant nodule seen within the right lower lobe on image 175 and measures 5 mm. This favors an infectious process. IMPRESSION: 1. Trace bilateral pleural effusions and a trace pericardial effusion. 2. Patchy areas of consolidation within the base of the lower lobes. This favors a pneumonia. 3. Interlobular septal thickening with a few scattered nodular densities seen within the perihilar and lower lung zones. This also likely represents a pneumonitis. 4. Follow-up chest x-ray in 2-3 months is recommended to ensure resolution. Electronically signed by: Anish Rowley M.D. 11/01/2017 7:11 AM Dictated Date/Time: 11/01/2017 7:04 AM
[2017-11-01 07:14] LABS: ALBUMIN 2.5 gm/dl (3.4-5.0); CALCIUM 7.7 mg/dl (8.5-10.1); CREATININE 0.58 mg/dl (0.60-1.20); POTASSIUM 3.5 mmol/L (3.5-5.1)
[2017-11-01 07:21] LABS: TOTAL PROTEIN 5.7 gm/dl (6.4-8.2)
[2017-11-01 07:28] LABS: BASO % 0.3 %; BASO ABS # 0.01 K/uL (0-0.2); IG# 0.01 K/uL (0.00-0.02); LYMPH % 22.8 %; LYMPH ABS # 0.81 K/uL (1.2-3.4); MONO % 5.3 %; MONO ABS # 0.19 K/uL (0.11-0.59); NEUT % 71.3 %; NEUT ABS # 2.54 K/uL (1.4-6.5)
[2017-11-01] MEDS: MULTIVITAMIN TAB PO SCH (08:12)
[2017-11-01] MEDS: DILTIAZEM HCL 30 MG TAB PO SCH ×2 (08:12→21:22)
[2017-11-01] MEDS: ATORVASTATIN 40 MG TAB PO SCH (08:12)
[2017-11-01] MEDS: RALOXIFENE 60 MG TAB PO SCH (08:13)
--- NOTE | 2017-11-01 08:14 | DIAGNOSTIC IMAGING REPORT ---
ABDOMEN AND PELVIS CT WITHOUT CONTRAST CT DOSE: 625.72 mGycm HISTORY: Abnormal LFTs TECHNIQUE: Multiaxial CT images of the abdomen and pelvis were performed without contrast. A dose lowering technique was utilized adhering to the principles of ALARA. COMPARISON STUDY: Abdomen and pelvis CT 01/01/2017. FINDINGS: Trace bilateral pleural effusions and patchy bilateral lower lobe densities with reticulonodular interstitial thickening. No pneumoperitoneum. No pneumatosis. No suspicious lytic or blastic osseous lesions. The unenhanced liver, pancreas, spleen, and adrenal glands are unremarkable. No renal or ureteral stones. No hydronephrosis. A few diverticula at the duodenum. Questionable thickening of the gallbladder wall which is not well-visualized due to streak artifact at this location. No retroperitoneal lymphadenopathy. Normal caliber abdominal aorta. The bladder, uterus, and adnexa are within normal limits. Suture material at the rectosigmoid junction. Suboptimal evaluation for bowel pathology due to the lack of intravenous and oral contrast. However, there is no definite bowel wall thickening or obstruction. Moderate stool throughout the colon. IMPRESSION: 1. No bowel wall thickening or obstruction. 2. Moderate stool within the colon. 3. Questionable thickening of the gallbladder wall which is not well visualized due to the streak artifact at this location. If the patient is complaining of right upper quadrant pain then consider follow-up abdominal ultrasound for further evaluation. 4. Patchy bilateral lower lobe densities and trace bilateral pleural effusions suggestive of a pneumonia. Electronically signed by: Anish Rowley M.D. 11/01/2017 8:13 AM Dictated Date/Time: 11/01/2017 8:03 AM
[2017-11-01] MEDS: DOXYCYCLINE IV 100 MG in DEXTROSE 5% 100ML 100 ML IV SCH ×2 (08:15→21:22)
--- NOTE | 2017-11-01 09:11 | Pharmacy Progress Note ---
Pharmacy Antibiotic Consult Date of Service: November 01, 2017. Pharmacy Dosing Scope Pharmacy is consulted to initiate vancomycin IV dosing therapy, order appropriate labs and adjust drug dose/frequency. Subjective The patient is a 77 year old female admitted on October 31, 2017 at 23:07. Objective Height (Feet): 5 Height (Inches): 1.00 Weight (Kilograms): 64.300 Lab Results (24hrs): Test 10/31/17 19:57 10/31/17 20:00 10/31/17 20:49 10/31/17 23:09 White Blood Count 3.52 K/uL (4.8-10.8) Red Blood Count 4.41 M/uL (4.2-5.4) Hemoglobin 13.7 g/dL (12.0-16.0) Hematocrit 40.5 % (37-47) Mean Corpuscular Volume 91.8 fL (80-100) Mean Corpuscular Hemoglobin 31.1 pg (25-34) Mean Corpuscular Hemoglobin Concent 33.8 g/dl (32-36) Platelet Count 28 K/uL (130-400) Mean Platelet Volume 11.0 fL (7.4-10.4) Neutrophils (%) (Auto) 79.5 % Lymphocytes (%) (Auto) 16.5 % Monocytes (%) (Auto) 3.4 % Eosinophils (%) (Auto) 0.0 % Basophils (%) (Auto) 0.6 % Neutrophils # (Auto) 2.80 K/uL (1.4-6.5) Lymphocytes # (Auto) 0.58 K/uL (1.2-3.4) Monocytes # (Auto) 0.12 K/uL (0.11-0.59) Eosinophils # (Auto) 0.00 K/uL (0-0.5) Basophils # (Auto) 0.02 K/uL (0-0.2) RDW Standard Deviation 46.2 fL (36.4-46.3) RDW Coefficient of Variation 13.7 % (11.5-14.5) Immature Granulocyte % (Auto) 0.0 % Immature Granulocyte # (Auto) 0.00 K/uL (0.00-0.02) Blood Smear Review Platelet Estimate SIGNIFIC DECREASED Prothrombin Time 10.2 SECONDS (9.0-12.0) Prothromb Time International Ratio 1.0 (0.9-1.1) Activated Partial Thromboplast Time 27.9 SECONDS (21.0-31.0) Partial Thromboplastin Ratio 1.1 Venous Blood pH 7.44 (7.36-7.41) Venous Blood Partial Pressure CO2 36 mmHg (38.0-50.0) Venous Blood Partial Pressure O2 27 mmHg Venous Blood HCO3 24 mmol/L Venous Blood Oxygen Saturation < 60.0 % Venous Blood Base Excess -0.1 mEq/L Sodium Level 139 mmol/L (136-145) Potassium Level 3.3 mmol/L (3.5-5.1) Chloride Level 109 mmol/L (98-107) Carbon Dioxide Level 21 mmol/L (21-32) Anion Gap 9.0 mmol/L (3-11) Blood Urea Nitrogen 15 mg/dl (7-18) Creatinine 0.85 mg/dl (0.60-1.20) Est Creatinine Clear Calc Drug Dose 47.6 ml/min Estimated GFR () 76.6 Estimated GFR (Non- 66.1 BUN/Creatinine Ratio 17.8 (10-20) Random Glucose 134 mg/dl (70-99) Calcium Level 7.7 mg/dl (8.5-10.1) Magnesium Level 1.8 mg/dl (1.8-2.4) Total Bilirubin 0.6 mg/dl (0.2-1) Aspartate Amino Transf (AST/SGOT) 199 U/L (15-37) Alanine Aminotransferase (ALT/SGPT) 69 U/L (12-78) Alkaline Phosphatase 61 U/L (45-117) Total Protein 6.4 gm/dl (6.4-8.2) Albumin 2.9 gm/dl (3.4-5.0) Globulin 3.5 gm/dl (2.5-4.0) Albumin/Globulin Ratio 0.8 (0.9-2) Procalcitonin 0.86 ng/ml (0-0.5) Chemistry Specimen Hemolysis Bedside Lactic Acid Venous 0.85 mmol/L (0.90-1.70) Fibrinogen 307 mg/dl (184-400) Fibrin Degradation Products >40 mcg/ml (<10) D-Dimer 4070 ug/L FEU (0-500) Test 11/01/17 06:17 White Blood Count 3.56 K/uL (4.8-10.8) Red Blood Count 3.93 M/uL (4.2-5.4) Hemoglobin 12.4 g/dL (12.0-16.0) Hematocrit 36.3 % (37-47) Mean Corpuscular Volume 92.4 fL (80-100) Mean Corpuscular Hemoglobin 31.6 pg (25-34) Mean Corpuscular Hemoglobin Concent 34.2 g/dl (32-36) Platelet Count 24 K/uL (130-400) Mean Platelet Volume 11.7 fL (7.4-10.4) Neutrophils (%) (Auto) 71.3 % Lymphocytes (%) (Auto) 22.8 % Monocytes (%) (Auto) 5.3 % Eosinophils (%) (Auto) 0.0 % Basophils (%) (Auto) 0.3 % Neutrophils # (Auto) 2.54 K/uL (1.4-6.5) Lymphocytes # (Auto) 0.81 K/uL (1.2-3.4) Monocytes # (Auto) 0.19 K/uL (0.11-0.59) Eosinophils # (Auto) 0.00 K/uL (0-0.5) Basophils # (Auto) 0.01 K/uL (0-0.2) RDW Standard Deviation 48.8 fL (36.4-46.3) RDW Coefficient of Variation 14.3 % (11.5-14.5) Immature Granulocyte % (Auto) 0.3 % Immature Granulocyte # (Auto) 0.01 K/uL (0.00-0.02) Sodium Level 141 mmol/L (136-145) Potassium Level 3.5 mmol/L (3.5-5.1) Chloride Level 115 mmol/L (98-107) Carbon Dioxide Level 18 mmol/L (21-32) Anion Gap 8.0 mmol/L (3-11) Blood Urea Nitrogen 10 mg/dl (7-18) Creatinine 0.58 mg/dl (0.60-1.20) Est Creatinine Clear Calc Drug Dose 69.7 ml/min Estimated GFR () 103.0 Estimated GFR (Non- 88.9 BUN/Creatinine Ratio 17.3 (10-20) Random Glucose 103 mg/dl (70-99) Calcium Level 7.7 mg/dl (8.5-10.1) Total Bilirubin 0.4 mg/dl (0.2-1) Aspartate Amino Transf (AST/SGOT) 420 U/L (15-37) Alanine Aminotransferase (ALT/SGPT) 128 U/L (12-78) Alkaline Phosphatase 55 U/L (45-117) Total Protein 5.7 gm/dl (6.4-8.2) Albumin 2.5 gm/dl (3.4-5.0) Globulin 3.2 gm/dl (2.5-4.0) Albumin/Globulin Ratio 0.8 (0.9-2) Micro Results: Item Value Date Time Blood Culture Received 10/31/172001 Blood Pending Blood Culture Received 10/31/171956 Blood Pending Assessment & Plan Patient started on vancomycin after presenting to ED with shortness of breath, fever and concern for infection. Rocephin and doxycyline also started empirically. Patient had been seen in the ED earlier 10/31 am and placed on doxycycline for ehrlichiosis. Became febrile, short of breath and returned to hospital. Blood cultures x 2 are pending. ID is also consulted. Vancomycin: * Patient received vancomycin 1 gm in the ED last evening (~15 mg/kg) * Because of partial loading dose given (<25 mg/kg) will start maintenance dosing earlier - will begin vancomycin 1000 mg (~15 mg/kg) iv q 18 hrs to achieve an estimated trough ~15-20 mcg/ml (goal for pneumonia) * Estimated kinetics: t1/2~15 hrs, ke~0.04 hr-1, CrCl ~69 ml/min (baseline Scr ~ 0.7 mg/dL) * Will plan to obtain a trough prior to the 1600 dose on 11/03 to ensure therapeutic Pharmacy will continue to follow and will adjust dose/frequency as necessary. Thank you
[2017-11-01] MEDS ORDERED: VANCOMYCIN IV 1,000 MG in SODIUM CHLORIDE 0.9% 250ML 250 ML IV SCH ×2 (10:00→14:00)
--- NOTE | 2017-11-01 10:59 | Progress Note ---
Progress Note Date of Service November 01, 2017. Progress Note ID Consult Dictated #[id number] A/P: 1. Anaplasmosis -continue doxy, change to po when eating -stop vanco and ctx -follow platelets for recovery -will need 10 days doxy -thank you
--- NOTE | 2017-11-01 11:51 | Hospitalist Progress Note ---
Hospitalist Progress Note Date of Service November 01, 2017. (Kasey Ferguson ., PASharonC) Subjective Pt evaluation today including: conversation w/ patient, conversation w/ family ( at bedside), physical exam, lab review, review of studies, review of inpatient medication list Voiding: no voiding problems Patient resting in bed. Feeling improved since admission. +decreased appetite- had nothing for breakfast. Denies any other concerning symptoms. SOB has resolved. Patient denies any fever, chills, sweats, lightheadedness, dizziness, vision changes, CP, palpitations, edema, SOB, wheezing, cough, abdominal pain, nausea, vomiting, diarrhea, urinary symptoms, melena, numbness/tingling, weakness, muscle/joint pain, anxiety/depression, active bleeding, or new skin discoloration/changes. (Kasey Ferguson ., FATEMEH-C) Medications Current Inpatient Medications Medications (Trade) Dose Ordered Sig/Jodi Route Start Time Stop Time Status Last Admin Dose Admin Sodium Chloride 1,000 ml @ 100 mls/hr Q10H IV 11/01/17 02:00 12/01/17 01:59 11/01/17 10:37 100 MLS/HR Acetaminophen (Tylenol Tab) 650 mg Q4H PRN PO 10/31/17 23:00 11/30/17 22:59 11/01/17 05:58 650 MG Al Hydrox/Mg Hydrox/Simethicone (Maalox Max Susp) 15 ml Q4H PRN PO 10/31/17 23:00 11/30/17 22:59 Magnesium Hydroxide (Milk Of Magnesia Susp) 30 ml Q12H PRN PO 10/31/17 23:00 11/30/17 22:59 Ondansetron HCl (Zofran Inj) 4 mg Q6H PRN IV 10/31/17 23:00 11/30/17 22:59 Polyethylene (Miralax Powder Packet) 17 gm DAILY PRN PO 10/31/17 23:00 11/30/17 22:59 Atorvastatin Calcium (Lipitor Tab) 40 mg DAILY PO 11/01/17 09:00 12/01/17 08:59 11/01/17 08:12 40 MG Diltiazem HCl (Cardizem Tab) 30 mg BID PO 11/01/17 09:00 12/01/17 08:59 11/01/17 08:12 30 MG Montelukast Sodium (Singulair Tab) 10 mg HS PO 11/01/17 21:00 12/01/17 20:59 Multivitamins (Multivitamin Tab) 1 tab QAM PO 11/01/17 09:00 12/01/17 08:59 11/01/17 08:12 1 TAB Raloxifene HCl (Evista Tab) 60 mg DAILY PO 11/01/17 09:00 12/01/17 08:59 11/01/17 08:13 60 MG Doxycycline Hyclate 100 mg/ Dextrose 110 ml @ 50 mls/hr BID IV 11/01/17 09:00 11/15/17 08:59 11/01/17 08:15 50 MLS/HR (Kasey Ferguson, KIKE) Objective Vital Signs Date Time Temp Pulse Resp B/P (MAP) Pulse Ox O2 Delivery O2 Flow Rate FiO2 11/01/17 10:51 36.5 103 20 119/80 (93) 93 Room Air 11/01/17 08:00 Nasal Cannula 3.0 11/01/17 07:20 37.1 111 18 104/69 (81) 94 Nasal Cannula 3.0 11/01/17 04:00 Nasal Cannula 3.0 11/01/17 03:30 37.1 98 17 118/79 (92) 94 Nasal Cannula 3.0 11/01/17 00:25 36.4 111 20 119/72 (88) 95 Nasal Cannula 3.0 11/01/17 00:16 36.9 107 18 105/73 92 10/31/17 23:00 111 18 108/79 93 Nasal Cannula 4.0 93 Humidified Oxygen 10/31/17 22:45 36.9 10/31/17 22:17 Nasal Cannula 4.0 10/31/17 22:00 114 18 120/86 93 Nasal Cannula 4.0 10/31/17 21:30 119 18 109/73 91 Nasal Cannula 4.0 10/31/17 21:00 114 18 112/71 91 Nasal Cannula 4.0 10/31/17 20:52 37.8 10/31/17 20:13 125 18 128/92 93 Nasal Cannula 3.0 10/31/17 20:11 126 10/31/17 19:43 88 Room Air 10/31/17 19:20 92 Nasal Cannula 4.0 10/31/17 19:19 39.4 132 20 133/87 88 Room Air 10/31/17 19:19 88 Room Air (Kasey Ferguson PA-C) Physical Exam General Appearance: no apparent distress Eyes: normal inspection, PERRL ENT: hearing grossly normal Neck: supple Respiratory/Chest: lungs clear, normal breath sounds, no respiratory distress, no accessory muscle use Cardiovascular: + tachycardia (regular rhythm ) Abdomen: normal bowel sounds, non tender, soft Extremities: no pedal edema, no calf tenderness Neurologic/Psychiatric: no motor/sensory deficits, alert, normal mood/affect, oriented x 3 Skin: normal color, warm/dry, no rash (Kasey Ferguson PA-C) Laboratory Results Last 24 Hours Test 10/31/17 19:57 10/31/17 20:00 10/31/17 20:49 10/31/17 23:09 White Blood Count 3.52 K/uL Red Blood Count 4.41 M/uL Hemoglobin 13.7 g/dL Hematocrit 40.5 % Mean Corpuscular Volume 91.8 fL Mean Corpuscular Hemoglobin 31.1 pg Mean Corpuscular Hemoglobin Concent 33.8 g/dl Platelet Count 28 K/uL Mean Platelet Volume 11.0 fL Neutrophils (%) (Auto) 79.5 % Lymphocytes (%) (Auto) 16.5 % Monocytes (%) (Auto) 3.4 % Eosinophils (%) (Auto) 0.0 % Basophils (%) (Auto) 0.6 % Neutrophils # (Auto) 2.80 K/uL Lymphocytes # (Auto) 0.58 K/uL Monocytes # (Auto) 0.12 K/uL Eosinophils # (Auto) 0.00 K/uL Basophils # (Auto) 0.02 K/uL RDW Standard Deviation 46.2 fL RDW Coefficient of Variation 13.7 % Immature Granulocyte % (Auto) 0.0 % Immature Granulocyte # (Auto) 0.00 K/uL Blood Smear Review Platelet Estimate SIGNIFIC DECREASED Prothrombin Time 10.2 SECONDS Prothromb Time International Ratio 1.0 Activated Partial Thromboplast Time 27.9 SECONDS Partial Thromboplastin Ratio 1.1 Venous Blood pH 7.44 Venous Blood Partial Pressure CO2 36 mmHg Venous Blood Partial Pressure O2 27 mmHg Venous Blood HCO3 24 mmol/L Venous Blood Oxygen Saturation < 60.0 % Venous Blood Base Excess -0.1 mEq/L Sodium Level 139 mmol/L Potassium Level 3.3 mmol/L Chloride Level 109 mmol/L Carbon Dioxide Level 21 mmol/L Anion Gap 9.0 mmol/L Blood Urea Nitrogen 15 mg/dl Creatinine 0.85 mg/dl Est Creatinine Clear Calc Drug Dose 47.6 ml/min Estimated GFR () 76.6 Estimated GFR (Non- 66.1 BUN/Creatinine Ratio 17.8 Random Glucose 134 mg/dl Calcium Level 7.7 mg/dl Magnesium Level 1.8 mg/dl Total Bilirubin 0.6 mg/dl Aspartate Amino Transf (AST/SGOT) 199 U/L Alanine Aminotransferase (ALT/SGPT) 69 U/L Alkaline Phosphatase 61 U/L Total Protein 6.4 gm/dl Albumin 2.9 gm/dl Globulin 3.5 gm/dl Albumin/Globulin Ratio 0.8 Procalcitonin 0.86 ng/ml Chemistry Specimen Hemolysis Bedside Lactic Acid Venous 0.85 mmol/L Fibrinogen 307 mg/dl Fibrin Degradation Products >40 mcg/ml D-Dimer 4070 ug/L FEU Test 11/01/17 06:17 White Blood Count 3.56 K/uL Red Blood Count 3.93 M/uL Hemoglobin 12.4 g/dL Hematocrit 36.3 % Mean Corpuscular Volume 92.4 fL Mean Corpuscular Hemoglobin 31.6 pg Mean Corpuscular Hemoglobin Concent 34.2 g/dl Platelet Count 24 K/uL Mean Platelet Volume 11.7 fL Neutrophils (%) (Auto) 71.3 % Lymphocytes (%) (Auto) 22.8 % Monocytes (%) (Auto) 5.3 % Eosinophils (%) (Auto) 0.0 % Basophils (%) (Auto) 0.3 % Neutrophils # (Auto) 2.54 K/uL Lymphocytes # (Auto) 0.81 K/uL Monocytes # (Auto) 0.19 K/uL Eosinophils # (Auto) 0.00 K/uL Basophils # (Auto) 0.01 K/uL RDW Standard Deviation 48.8 fL RDW Coefficient of Variation 14.3 % Immature Granulocyte % (Auto) 0.3 % Immature Granulocyte # (Auto) 0.01 K/uL Sodium Level 141 mmol/L Potassium Level 3.5 mmol/L Chloride Level 115 mmol/L Carbon Dioxide Level 18 mmol/L Anion Gap 8.0 mmol/L Blood Urea Nitrogen 10 mg/dl Creatinine 0.58 mg/dl Est Creatinine Clear Calc Drug Dose 69.7 ml/min Estimated GFR () 103.0 Estimated GFR (Non- 88.9 BUN/Creatinine Ratio 17.3 Random Glucose 103 mg/dl Calcium Level 7.7 mg/dl Total Bilirubin 0.4 mg/dl Aspartate Amino Transf (AST/SGOT) 420 U/L Alanine Aminotransferase (ALT/SGPT) 128 U/L Alkaline Phosphatase 55 U/L Total Protein 5.7 gm/dl Albumin 2.5 gm/dl Globulin 3.2 gm/dl Albumin/Globulin Ratio 0.8 (Kasey Ferguson PA-C) Assessment and Plan 77 yo F w/ pMHx HTN, HLD, history of cured rectal cancer and recently confirmed ehrlichiosis returns to the ER with fever, weakness and shortness of breath Acute hypoxic respiratory failure, sepsis secondary to Ehrlichiosis- IMPROVING: - Admitted to tele for cardiac monitoring- no acute events- transfer to med/ surg - O2 protocol, wean as tolerated - BCx pending - IV NSS @ 100 ml/hr- will continue until tolerating full PO intake - ID consulted- discontinue Vancomycin and Rocephin, continue Doxycycline x10 days - Hematology consulted- continue to monitor counts - Follow CBC and PRP Elevated LFTs, likely secondary to above: Treatment as above and continue to follow Pancytopenia- STABLE: Treatment as above and continue to follow HTN- STABLE: Continue Diltiazem 30 mg BID HLD: Continue Atorvastatin 40 mg daily Restless leg syndrome: Continue Raloxifene 60 mg daily DVT prophylaxis: TEDs/SCDs, ambulation; avoid chemical anticoagulation due to pancytopenia Code status: LEVEL I, FULL Dispo: From home, lives w/ - PT/OT and CM following (Kasey Ferguson PA-C) Reviewed: Pt Seen/Exam by Me (Nichol Dahl DO) History Pt is feeling much improved. She has started to cough, but this is new today. No further SOB. She has been tolerating PO, but feels her appetite is low. Agree with HPI/ROS as noted by PA. 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 If ongoing low platelets, can consider ITP, however this is felt to be unlikely PNA noted on imaging, doxy will cover Pt stable for transfer to floor (Nichol Dahl, DO)
--- NOTE | 2017-11-01 13:48 | INFECT. DISEASE CONSULTATION ---
DATE OF CONSULTATION: 11/01/2017 HISTORY OF PRESENT ILLNESS: This is a 77-year-old female who initially presented to the Emergency Room yesterday morning with vertigo, headache, and subjective fevers and chills. She was evaluated in the ER and found to be pancytopenic. Her LFTs were not done initially. She did have a peripheral smear as part of the workup for pancytopenia, and it was found that she tested positive for a lochia. She was discharged from the Emergency Room on doxycycline. She continued to feel unwell throughout the day and re-presented to the Emergency Room last night and was subsequently admitted. She did have a temperature of 39.4 on admission last night but has otherwise been afebrile. She was placed on vancomycin and Rocephin in addition to continuing on doxycycline intravenously. She this morning has a white blood cell count of 3.5, which is down from 5.6 yesterday morning, and her platelets are down to 24 from 51. Her LFTs have also increased. Her AST is 420 from 199 yesterday, and ALT is 128 from 69 yesterday. Blood cultures were ordered and are pending. She did have a Lyme serology in the ER yesterday morning, and this was negative. She does admit to a tick bite some time ago which she removed. She states her headache and vertigo have completely resolved. She currently denies any fevers. She states overall she is feeling significantly better. Her only complaint is poor appetite. Her remaining review of systems is unremarkable. PAST MEDICAL HISTORY: Significant for hyperlipidemia and a history of rectal cancer. FAMILY HISTORY: Noncontributory. SOCIAL HISTORY: Significant for a history of tobacco use. She denies alcohol or drug use. ALLERGIES: SHE HAS ALLERGY TO PENICILLIN. MEDICATIONS: Singulair, vancomycin, Lipitor, Cardizem, multivitamin, Evista, doxycycline, ceftriaxone, Tylenol, Maalox, milk of magnesia, Zofran, MiraLax. PHYSICAL EXAMINATION: VITAL SIGNS: She is currently afebrile, T-max is 39.4 in the ER, pulse 111, respiratory rate 18, blood pressure 104/59, oxygen saturation is 94% on 3 L nasal cannula. GENERAL: She is awake, alert, and oriented x3. She is in no acute distress. HEENT: Mucous membranes are moist. Extraocular muscles are intact. CARDIOVASCULAR: Heart is regular. RESPIRATORY: Lungs are clear. GASTROINTESTINAL: Abdomen is soft, nontender, nondistended. EXTREMITIES: There is no lower extremity edema bilaterally. SKIN: Without rash. LABORATORY DATA: CBC on the 18, white blood cell count 3.56, hemoglobin 12.4, platelets 24. Chemistry panel: Sodium 141, potassium 3.5, chloride 115, bicarbonate 18, BUN 10, creatinine 0.5, glucose 103, AST 420, ALT 128. Procalcitonin last night was 0.86. Plasma serologies are pending. Blood cultures are pending. She did have a CT of the abdomen and pelvis which was unremarkable in the Emergency Room. ASSESSMENT AND PLAN: Anaplasmosis. She will continue on doxycycline. This can be changed to p.o. as her diet tolerates. Her vancomycin and Rocephin can be discontinued from an infectious diseases standpoint. She will be continued to be monitored for recovery of her platelets as well as improvement in her LFTs as she is already feeling significantly better. This was discussed with her primary physician. Thank you for this consultation.
--- NOTE | 2017-11-01 16:30 | Oncology Consultation ---
Oncology/Heme Consultation Date of Consultation: November 01, 2017. Attending Physician: Nichol Dahl DO Reason for Consultation: Thrombocytopenia Ehrlichiosis History of Present Illness Ms. Mckinnon is a 77 year old woman with a history of a rectal cancer treated several years ago with surgery alone. She discovered a tick bite last Saturday. Starting yesterday or the day before, she began feeling very fatigued and weak and spiked fevers as high as 105F. She was seen in the ER yesterday afternoon, where a CBC revealed platelets of 50K. Her peripheral smear revealed intra- leukocytic inclusions consistent with Ehrlichiosis. She was started on doxycycline and left briefly. However, she returned a few hours later feeling ill and was admitted. Imaging revealed some patchy lower lung consolidations consistent with a pneumonia, though she denies any cough or purulent sputum. She was short of breath while febrile but now that she has defervesced, she is feeling much better. Past Medical/Surgical History Medical Problems: (1) Dizziness Status: Acute (2) Headache Status: Acute (3) Hypocalcemia Status: Acute (4) Hypokalemia Status: Acute (5) Hypoxia Status: Acute (6) Leukopenia Status: Acute (7) Pneumonia Status: Acute (8) Sepsis Status: Acute (9) Thrombocytopenia Status: Acute Family History No pertinent family history Social History Smoking Status: Former Smoker Marital Status: Housing Status: lives with significant other Occupation Status: retired Allergies Coded Allergies: Penicillins (Verified Allergy, Severe, ANAPHYLAXIS-SEE COMMENT, 10/31/17) PT STATES SHE'S ALLERGIC TO ALL DERIVATIVES OF PENICILLIN Tetanus Toxoids (Verified Allergy, Intermediate, ANAPHYLAXIS, 10/31/17) Home Medications Scheduled Atorvastatin (Lipitor), 40 MG PO DAILY Beclomethasone Dipropionate (N (Qnasl), 1 SPRAY AMANDA BID Cholecalciferol (Vitamin D), 2,000 INTUNIT PO QAM Diltiazem HCl (Diltiazem HCl), 30 MG PO BID Doxycycline Monohydrate (Monodox), 100 MG PO BID Montelukast Sodium (Singulair), 10 MG PO HS Multiple Vitamin (Multivitamin), 1 TAB PO QAM Raloxifene HCl (Raloxifene Hydrochloride), 60 MG PO DAILY Current Inpatient Medications Current Inpatient Medications Medications (Trade) Dose Ordered Sig/Jodi Route Start Time Stop Time Status Last Admin Dose Admin Sodium Chloride 1,000 ml @ 100 mls/hr Q10H IV 11/01/17 02:00 12/01/17 01:59 11/01/17 10:37 100 MLS/HR Acetaminophen (Tylenol Tab) 650 mg Q4H PRN PO 10/31/17 23:00 11/30/17 22:59 11/01/17 16:05 650 MG Al Hydrox/Mg Hydrox/Simethicone (Maalox Max Susp) 15 ml Q4H PRN PO 10/31/17 23:00 11/30/17 22:59 Magnesium Hydroxide (Milk Of Magnesia Susp) 30 ml Q12H PRN PO 10/31/17 23:00 11/30/17 22:59 Ondansetron HCl (Zofran Inj) 4 mg Q6H PRN IV 10/31/17 23:00 11/30/17 22:59 Polyethylene (Miralax Powder Packet) 17 gm DAILY PRN PO 10/31/17 23:00 11/30/17 22:59 Atorvastatin Calcium (Lipitor Tab) 40 mg DAILY PO 11/01/17 09:00 12/01/17 08:59 11/01/17 08:12 40 MG Diltiazem HCl (Cardizem Tab) 30 mg BID PO 11/01/17 09:00 12/01/17 08:59 11/01/17 08:12 30 MG Montelukast Sodium (Singulair Tab) 10 mg HS PO 11/01/17 21:00 12/01/17 20:59 Multivitamins (Multivitamin Tab) 1 tab QAM PO 11/01/17 09:00 12/01/17 08:59 11/01/17 08:12 1 TAB Raloxifene HCl (Evista Tab) 60 mg DAILY PO 11/01/17 09:00 12/01/17 08:59 11/01/17 08:13 60 MG Doxycycline Hyclate 100 mg/ Dextrose 110 ml @ 50 mls/hr BID IV 11/01/17 09:00 11/15/17 08:59 11/01/17 08:15 50 MLS/HR Review of Systems Constitutional: + fever, + fatigue Eyes: No worsening of vision ENT: No unusual epistaxis Respiratory: + shortness of breath, No cough, No hemoptysis Cardiovascular: No chest pain Abdomen: No pain, No GI bleeding Genitourinary - Female: No hematuria Hematologic / Lymphatic: No abnormal bleeding/bruising Integumentary: No rash Physical Exam Date Time Temp Pulse Resp B/P (MAP) Pulse Ox O2 Delivery O2 Flow Rate FiO2 11/01/17 14:38 37.1 114 18 155/84 (107) 94 Room Air 11/01/17 13:41 36.5 103 20 93 11/01/17 12:21 Room Air 11/01/17 12:00 Room Air 11/01/17 10:51 36.5 103 20 119/80 (93) 93 Room Air 11/01/17 08:00 Nasal Cannula 3.0 11/01/17 07:20 37.1 111 18 104/69 (81) 94 Nasal Cannula 3.0 11/01/17 04:00 Nasal Cannula 3.0 11/01/17 03:30 37.1 98 17 118/79 (92) 94 Nasal Cannula 3.0 11/01/17 00:25 36.4 111 20 119/72 (88) 95 Nasal Cannula 3.0 11/01/17 00:16 36.9 107 18 105/73 92 10/31/17 23:00 111 18 108/79 93 Nasal Cannula 4.0 93 Humidified Oxygen 10/31/17 22:45 36.9 10/31/17 22:17 Nasal Cannula 4.0 10/31/17 22:00 114 18 120/86 93 Nasal Cannula 4.0 10/31/17 21:30 119 18 109/73 91 Nasal Cannula 4.0 10/31/17 21:00 114 18 112/71 91 Nasal Cannula 4.0 10/31/17 20:52 37.8 10/31/17 20:13 125 18 128/92 93 Nasal Cannula 3.0 10/31/17 20:11 126 10/31/17 19:43 88 Room Air 10/31/17 19:20 92 Nasal Cannula 4.0 10/31/17 19:19 39.4 132 20 133/87 88 Room Air 10/31/17 19:19 88 Room Air General Appearance: WD/WN, no apparent distress ENT: pharynx normal (no petechiae/purpura) Respiratory/Chest: lungs clear Cardiovascular: regular rate, rhythm Abdomen/GI: non tender, soft, no organomegaly Extremities/Musculoskelatal: no pedal edema Neurologic/Psych: alert, oriented x 3 Skin: no rash Laboratory Results Last 24 Hours Test 10/31/17 19:57 10/31/17 20:00 10/31/17 20:49 10/31/17 23:09 White Blood Count 3.52 K/uL Red Blood Count 4.41 M/uL Hemoglobin 13.7 g/dL Hematocrit 40.5 % Mean Corpuscular Volume 91.8 fL Mean Corpuscular Hemoglobin 31.1 pg Mean Corpuscular Hemoglobin Concent 33.8 g/dl Platelet Count 28 K/uL Mean Platelet Volume 11.0 fL Neutrophils (%) (Auto) 79.5 % Lymphocytes (%) (Auto) 16.5 % Monocytes (%) (Auto) 3.4 % Eosinophils (%) (Auto) 0.0 % Basophils (%) (Auto) 0.6 % Neutrophils # (Auto) 2.80 K/uL Lymphocytes # (Auto) 0.58 K/uL Monocytes # (Auto) 0.12 K/uL Eosinophils # (Auto) 0.00 K/uL Basophils # (Auto) 0.02 K/uL RDW Standard Deviation 46.2 fL RDW Coefficient of Variation 13.7 % Immature Granulocyte % (Auto) 0.0 % Immature Granulocyte # (Auto) 0.00 K/uL Blood Smear Review Platelet Estimate SIGNIFIC DECREASED Prothrombin Time 10.2 SECONDS Prothromb Time International Ratio 1.0 Activated Partial Thromboplast Time 27.9 SECONDS Partial Thromboplastin Ratio 1.1 Venous Blood pH 7.44 Venous Blood Partial Pressure CO2 36 mmHg Venous Blood Partial Pressure O2 27 mmHg Venous Blood HCO3 24 mmol/L Venous Blood Oxygen Saturation < 60.0 % Venous Blood Base Excess -0.1 mEq/L Sodium Level 139 mmol/L Potassium Level 3.3 mmol/L Chloride Level 109 mmol/L Carbon Dioxide Level 21 mmol/L Anion Gap 9.0 mmol/L Blood Urea Nitrogen 15 mg/dl Creatinine 0.85 mg/dl Est Creatinine Clear Calc Drug Dose 47.6 ml/min Estimated GFR () 76.6 Estimated GFR (Non- 66.1 BUN/Creatinine Ratio 17.8 Random Glucose 134 mg/dl Calcium Level 7.7 mg/dl Magnesium Level 1.8 mg/dl Total Bilirubin 0.6 mg/dl Aspartate Amino Transf (AST/SGOT) 199 U/L Alanine Aminotransferase (ALT/SGPT) 69 U/L Alkaline Phosphatase 61 U/L Total Protein 6.4 gm/dl Albumin 2.9 gm/dl Globulin 3.5 gm/dl Albumin/Globulin Ratio 0.8 Procalcitonin 0.86 ng/ml Chemistry Specimen Hemolysis Bedside Lactic Acid Venous 0.85 mmol/L Fibrinogen 307 mg/dl Fibrin Degradation Products >40 mcg/ml D-Dimer 4070 ug/L FEU Test 11/01/17 06:17 White Blood Count 3.56 K/uL Red Blood Count 3.93 M/uL Hemoglobin 12.4 g/dL Hematocrit 36.3 % Mean Corpuscular Volume 92.4 fL Mean Corpuscular Hemoglobin 31.6 pg Mean Corpuscular Hemoglobin Concent 34.2 g/dl Platelet Count 24 K/uL Mean Platelet Volume 11.7 fL Neutrophils (%) (Auto) 71.3 % Lymphocytes (%) (Auto) 22.8 % Monocytes (%) (Auto) 5.3 % Eosinophils (%) (Auto) 0.0 % Basophils (%) (Auto) 0.3 % Neutrophils # (Auto) 2.54 K/uL Lymphocytes # (Auto) 0.81 K/uL Monocytes # (Auto) 0.19 K/uL Eosinophils # (Auto) 0.00 K/uL Basophils # (Auto) 0.01 K/uL RDW Standard Deviation 48.8 fL RDW Coefficient of Variation 14.3 % Immature Granulocyte % (Auto) 0.3 % Immature Granulocyte # (Auto) 0.01 K/uL Sodium Level 141 mmol/L Potassium Level 3.5 mmol/L Chloride Level 115 mmol/L Carbon Dioxide Level 18 mmol/L Anion Gap 8.0 mmol/L Blood Urea Nitrogen 10 mg/dl Creatinine 0.58 mg/dl Est Creatinine Clear Calc Drug Dose 69.7 ml/min Estimated GFR () 103.0 Estimated GFR (Non- 88.9 BUN/Creatinine Ratio 17.3 Random Glucose 103 mg/dl Calcium Level 7.7 mg/dl Total Bilirubin 0.4 mg/dl Aspartate Amino Transf (AST/SGOT) 420 U/L Alanine Aminotransferase (ALT/SGPT) 128 U/L Alkaline Phosphatase 55 U/L Total Protein 5.7 gm/dl Albumin 2.5 gm/dl Globulin 3.2 gm/dl Albumin/Globulin Ratio 0.8 Assessment & Plan Ms. Mckinnon most likely has Ehrlichiosis or Anaplasmosis, based on her LFTs, platelets, high fevers, and history of a tick bite. She is doing much better today after starting doxycycline yesterday. Her counts may continue to trend down, though they should start to rise in the next few days. She has no evidence of schistocytes on smear and her hemoglobin is normal. She has no adenopathy or splenomegaly and her liver appears normal by CT. If her counts do not recover, it may be possible that she has concurrent issues, but the overall clinical picture is very suggestive.
--- NOTE | 2017-11-01 19:40 | DIAGNOSTIC IMAGING REPORT ---
ULTRASOUND R VENOUS DOPP LOWER EXT UNILAT CLINICAL HISTORY: pain, swelling, redness, posterior right knee COMPARISON STUDY: No previous studies for comparison. FINDINGS: Real-time and color flow Doppler imaging were performed. Flow was seen within the femoral, popliteal and calf veins with no intraluminal thrombus demonstrated. The saphenous vein is patent. There is a complex fluid collection located medial to the knee and 24 x 20 x 18 mm. It is unclear whether this is intra or extra-articular. IMPRESSION: No evidence of right lower extremity DVT. Complex fluid collection located medial to the right knee measuring 24 x 20 x 18 mm. Electronically signed by: Frantz Valdez M.D. 11/01/2017 7:38 PM Dictated Date/Time: 11/01/2017 7:37 PM
[2017-11-01] MEDS: MONTELUKAST SOD 10 MG TAB PO SCH (21:21)
[2017-11-02] MEDS: SODIUM CHLORIDE 0.9% 1000ML 1,000 ML IV SCH ×3 (04:53→17:21)
[2017-11-02] MEDS: ACETAMINOPHEN 325 MG TAB PO PRN ×3 (04:55→19:40)
[2017-11-02 07:37] VITALS: BP 111/76; PULSE 88; TEMP 36.8; O2SAT 94
[2017-11-02 08:05] LABS: HEMOGLOBIN 12.1 g/dL (12.0-16.0); MEAN CELL VOLUME 90.7 fL (80-100); MEAN CORPUSCULAR HEMOGLOBIN 31.3 pg (25-34); MEAN CORPUSCULAR HGB CONC 34.6 g/dl (32-36); MEAN PLATELET VOLUME 11.8 fL (7.4-10.4); PLATELET COUNT 28 K/uL (130-400); RED CELL DISTRIBUTION WIDTH CV 14.2 % (11.5-14.5); RED CELL DISTRIBUTION WIDTH SD 47.4 fL (36.4-46.3)
[2017-11-02] MEDS: DOXYCYCLINE IV 100 MG in DEXTROSE 5% 100ML 100 ML IV SCH (08:30)
[2017-11-02] MEDS: DILTIAZEM HCL 30 MG TAB PO SCH ×2 (08:33→21:22)
[2017-11-02] MEDS: RALOXIFENE 60 MG TAB PO SCH (08:34)
[2017-11-02] MEDS: MULTIVITAMIN TAB PO SCH (08:34)
[2017-11-02] MEDS: ATORVASTATIN 40 MG TAB PO SCH (08:37)
[2017-11-02 08:38] LABS: ALBUMIN 2.6 gm/dl (3.4-5.0); CALCIUM 7.7 mg/dl (8.5-10.1); CREATININE 0.63 mg/dl (0.60-1.20); POTASSIUM 3.2 mmol/L (3.5-5.1); TOTAL PROTEIN 5.7 gm/dl (6.4-8.2)
[2017-11-02] MEDS ORDERED: NURSING VERBAL MED ORDER ONE (09:00)
--- NOTE | 2017-11-02 09:11 | Progress Note ---
Subjective Date of Service: November 02, 2017. Subjective Pt evaluation today including: conversation w/ patient, conversation w/ family Nursing called last night saying that pt had sudden onset of R LE pain behind her knee. She did not have that earlier in the day. LE US ordered and shows fluid collection. Pt reports it is better today. 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 She notes a "wooshing" noise in her L ear. Her appetite is still low with low fluid intake as well. She tolerates what she does take though. Pt denies fever, SOB, chest pain, abd pain, n/v/c/d. Problem List Medical Problems: (1) Dizziness Status: Acute (2) Headache Status: Acute (3) Hypocalcemia Status: Acute (4) Hypokalemia Status: Acute (5) Hypoxia Status: Acute (6) Leukopenia Status: Acute (7) Pneumonia Status: Acute (8) Sepsis Status: Acute (9) Thrombocytopenia Status: Acute Review of Systems All Other Systems: Reviewed and Negative Objective Vital Signs Date Time Temp Pulse Resp B/P (MAP) Pulse Ox O2 Delivery O2 Flow Rate FiO2 11/02/17 07:37 36.8 88 18 111/76 (88) 94 Room Air 11/02/17 00:00 Room Air 11/01/17 23:10 37.1 95 18 115/78 (90) 92 Room Air 11/01/17 20:00 Room Air 11/01/17 16:10 Room Air 11/01/17 14:38 37.1 114 18 155/84 (107) 94 Room Air 11/01/17 13:41 36.5 103 20 93 11/01/17 12:21 Room Air 11/01/17 12:00 Room Air 11/01/17 10:51 36.5 103 20 119/80 (93) 93 Room Air Physical Exam Comments: General Appearance: WD/WN, no apparent distress Eye Exam: bilateral eye normal inspection, sclerae normal Respiratory: normal breath sounds, no respiratory distress Cardiovascular: normal peripheral pulses, regular rate, rhythm Gastrointestinal: non tender, soft Extremities: non-tender, no pedal edema, small fluid collection noted on posterior central R knee, nonTTP Neurologic/Psychiatric: alert, normal mood/affect, oriented x 3 Skin Characteristics: normal color, warm/dry Laboratory Results Last 24 Hours Test 11/02/17 07:49 White Blood Count 3.50 K/uL Red Blood Count 3.86 M/uL Hemoglobin 12.1 g/dL Hematocrit 35.0 % Mean Corpuscular Volume 90.7 fL Mean Corpuscular Hemoglobin 31.3 pg Mean Corpuscular Hemoglobin Concent 34.6 g/dl RDW Standard Deviation 47.4 fL RDW Coefficient of Variation 14.2 % Platelet Count 28 K/uL Mean Platelet Volume 11.8 fL Sodium Level 144 mmol/L Potassium Level 3.2 mmol/L Chloride Level 115 mmol/L Carbon Dioxide Level 23 mmol/L Anion Gap 7.0 mmol/L Blood Urea Nitrogen 6 mg/dl Creatinine 0.63 mg/dl Est Creatinine Clear Calc Drug Dose 64.2 ml/min Estimated GFR () 100.3 Estimated GFR (Non- 86.5 BUN/Creatinine Ratio 8.8 Random Glucose 83 mg/dl Calcium Level 7.7 mg/dl Magnesium Level 1.7 mg/dl Total Bilirubin 0.5 mg/dl Direct Bilirubin 0.2 mg/dl Aspartate Amino Transf (AST/SGOT) 214 U/L Alanine Aminotransferase (ALT/SGPT) 102 U/L Alkaline Phosphatase 61 U/L Total Protein 5.7 gm/dl Albumin 2.6 gm/dl Assessment and Plan 77 yo F w/ pMHx HTN, HLD, history of cured rectal cancer and recently confirmed ehrlichiosis returns to the ER with fever, weakness and shortness of breath Acute hypoxic respiratory failure, sepsis secondary to Ehrlichiosis- IMPROVING: PNA noted on CXR, doxy will cover - BCx neg on prelim - IV NSS @ 100 ml/hr- will continue until appetite improves - ID consulted- discontinue Vancomycin and Rocephin, continue Doxycycline x10 days, transition to PO today - Hematology consulted- continue to monitor counts - Follow CBC and PRP Elevated LFTs, likely secondary to above: Treatment as above and continue to follow Improving Pancytopenia- improving LE pain: US neg for DVT, shows complex fluid collection Reports improvement Warm compresses PRN HypoK, HypoMg: replace and monitor HTN- STABLE: Continue Diltiazem 30 mg BID HLD: Continue Atorvastatin 40 mg daily Restless leg syndrome: Continue Raloxifene 60 mg daily DVT prophylaxis: TEDs/SCDs, ambulation; avoid chemical anticoagulation due to pancytopenia Code status: LEVEL I, FULL Dispo: From home, lives w/ - PT/OT and CM following
[2017-11-02] MEDS ORDERED: POTASSIUM CITRATE 10 MEQ TAB PO ONE (10:37)
[2017-11-02] MEDS ORDERED: MAGNESIUM SULFATE 1GM / D5W 100 ML IV ONE (11:00)
[2017-11-02 15:47] VITALS: BP 127/87; PULSE 98; TEMP 36.6; O2SAT 93
[2017-11-02 17:17] VITALS: TEMP 36.8
[2017-11-02] MEDS: POTASSIUM CITRATE 10 MEQ TAB PO SCH (17:21)
[2017-11-02] MEDS ORDERED: ATORVASTATIN 40 MG TAB PO SCH (21:00)
[2017-11-02] MEDS: DOXYCYCLINE HYCLATE 100 MG CAP PO SCH (21:21)
[2017-11-02] MEDS: MONTELUKAST SOD 10 MG TAB PO SCH (21:22)
[2017-11-02] MEDS ORDERED: hydrOXYzine HCL 25 MG TAB PO PRN (22:00)
[2017-11-02 23:30] VITALS: BP 115/75; PULSE 95; TEMP 37; O2SAT 92
[2017-11-03] MEDS ORDERED: TRAMADOL HCL 50 MG TAB PO STA (01:22)
[2017-11-03] MEDS: SODIUM CHLORIDE 0.9% 1000ML 1,000 ML IV SCH (02:30)
[2017-11-03] MEDS: ACETAMINOPHEN 325 MG TAB PO PRN (06:24)
[2017-11-03 06:27] VITALS: BP 119/80; PULSE 106; TEMP 37.5; O2SAT 92
[2017-11-03 06:45] LABS: HEMATOCRIT 33.2 % (37-47); HEMOGLOBIN 11.4 g/dL (12.0-16.0); MEAN CELL VOLUME 91.2 fL (80-100); MEAN CORPUSCULAR HEMOGLOBIN 31.3 pg (25-34); MEAN CORPUSCULAR HGB CONC 34.3 g/dl (32-36); MEAN PLATELET VOLUME 12.2 fL (7.4-10.4); PLATELET COUNT 45 K/uL (130-400); RED CELL DISTRIBUTION WIDTH CV 14.1 % (11.5-14.5); RED CELL DISTRIBUTION WIDTH SD 47.4 fL (36.4-46.3); WHITE BLOOD COUNT 4.94 K/uL (4.8-10.8)
[2017-11-03 06:57] LABS: ALBUMIN 2.4 gm/dl (3.4-5.0); CALCIUM 7.6 mg/dl (8.5-10.1); CREATININE 0.54 mg/dl (0.60-1.20); POTASSIUM 3.5 mmol/L (3.5-5.1); TOTAL PROTEIN 5.3 gm/dl (6.4-8.2)
[2017-11-03 07:39] VITALS: BP 119/83; PULSE 109; TEMP 37
[2017-11-03] MEDS: DILTIAZEM HCL 30 MG TAB PO SCH (07:41)
[2017-11-03] MEDS: MULTIVITAMIN TAB PO SCH (07:41)
[2017-11-03] MEDS: DOXYCYCLINE HYCLATE 100 MG CAP PO SCH (07:41)
[2017-11-03] MEDS: RALOXIFENE 60 MG TAB PO SCH (07:41)
[2017-11-03] MEDS: POTASSIUM CITRATE 10 MEQ TAB PO SCH (07:41)
[2017-11-03] MEDS ORDERED: DXY100 PO ×2 (09:18)
--- NOTE | 2017-11-03 09:20 | Discharge Instructions ---
Discharge Instructions Date of Service November 03, 2017. Admission Reason for Admission: Acute Respiratory Failure With Hypoxia, Febrile, Discharge Discharge Diagnosis / Problem: Anaplasma phagocytophilum Discharge Goals Goal(s): Decrease discomfort, Improve function, Increase independence Activity Recommendations Activity Limitations: resume your previous activity . Instructions / Follow-Up Instructions / Follow-Up Labs drawn on Saturday Dr. Knox later this week You should continue with your probiotic that you were taking prior to admission. Current Hospital Diet Patient's current hospital diet: AHA Diet (Heart Healthy) Discharge Diet Recommended Diet: Regular Diet Pending Studies Studies pending at discharge: no Medical Emergencies . Who to Call and When: Medical Emergencies: If at any time you feel your situation is an emergency, please call 911 immediately. . Non-Emergent Contact Non-Emergency issues call your: Primary Care Provider . . "Provider Documentation" section prepared by Nichol Dahl. .
--- NOTE | 2017-11-03 09:25 | Discharge Summary ---
Discharge Summary Date of Service November 03, 2017. Discharge Summary Admission Date: October 31, 2017 at 23:07 Discharge Date: November 03, 2017 Discharge Disposition: Home Principal Diagnosis: Anaplasma phagocytophilum Problems/Secondary Diagnoses: PNA HTN Hyperlipidemia RLS Hx of rectal cancer Immunizations: Have You Had Influenza Vaccine: Yes History of Tetanus Vaccine?: allergic to immunization History of Pneumococcal: Yes History of Hepatitis B Vaccine: No Consultations: Dr. Strauss (heme/onc) Dr. Child (ID) Medication Reconciliation New Medications: Doxycycline Hyclate (Doxycycline Hyclate) 100 Mg Cap 100 MG PO BID for 9 Days, #18 CAP Continued Medications: Atorvastatin (Lipitor) 40 Mg Tab 40 MG PO DAILY Beclomethasone Dipropionate (N (Qnasl) 80 Mcg/Act Aer 1 SPRAY AMANDA BID Cholecalciferol (Vitamin D) 2,000 Unit Cap 2000 INTUNIT PO QAM Diltiazem HCl (Diltiazem HCl) 30 Mg Tab 30 MG PO BID Montelukast Sodium (Singulair) 10 Mg Tab 10 MG PO HS, TAB Multiple Vitamin (Multivitamin) 1 Tab Tab 1 TAB PO QAM, TAB Raloxifene HCl (Raloxifene Hydrochloride) 60 Mg Tab 60 MG PO DAILY Discontinued Medications: Doxycycline Monohydrate (Monodox) 100 Mg Cap 100 MG PO BID, CAP STARTED 10/31/17 FOR 14 DAYS. Discharge Exam Pt is feeling much improved. She has been tolerating PO without issue. No further pain to the R posterior knee s/p ambulation and warm compresses. Pt denies fever, SOB, chest pain, abd pain, n/v/c/d, LE pain or swelling. Physical Exam: General Appearance: WD/WN, no apparent distress Eyes: normal inspection, sclerae normal Respiratory/Chest: normal breath sounds, no respiratory distress Cardiovascular: regular rate, rhythm, no edema, normal peripheral pulses Abdomen / GI: non tender, soft Extremities: no calf tenderness, no pedal edema Neurologic/Psychiatric: alert, normal mood/affect, oriented x 3 Skin: normal color, warm/dry Hospital Course 77 yo F w/ pMHx HTN, HLD, history of cured rectal cancer and recently confirmed ehrlichiosis returns to the ER with fever, weakness and shortness of breath Acute hypoxic respiratory failure, sepsis secondary to Ehrlichiosis- IMPROVING: PNA noted on CXR, doxy will cover - BCx neg on prelim - IV NSS @ 100 ml/hr- will continue until appetite improves - ID consulted- discontinue Vancomycin and Rocephin, continue Doxycycline x10 days, transitioned to PO without - Hematology consulted, platelets at 45 on d/c Discussed with Dr. 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 Discharge Instructions Please refer to the electronic Patient Visit Report (Discharge Instructions) for additional information. Follow-Up Labs drawn on Saturday Dr. Knox later this week Additional Copies To Maria De Jesus Knox D.O.
[2017-11-03 09:52] VITALS: BP 119/83; PULSE 109; TEMP 37; O2SAT 92
[2017-11-03] MEDS ORDERED: VANCOMYCIN TROUGH ONE (15:30)
== END 2017-11-03 10:14 | disposition home or self-care (01) | DRG 871 ==
LOC: EDBD 19:18 → C.EDB 19:20 → C.2T 23:07 → ENRESERV 23:43 → C.MS2W 11-01 12:50 → ENRESERV 11-01 12:58
PROVIDERS: ADMIT Hospitalist; ATTEND Family Medicine
DX: A41.89 Other specified sepsis (principal); J96.01 Acute respiratory failure with hypoxia; J18.9 Pneumonia, unspecified organism; A77.49 Other ehrlichiosis; D61.818 Other pancytopenia; R94.5 Abnormal results of liver function studies; M79.604 Pain in right leg; R25.2 Cramp and spasm; E87.6 Hypokalemia; E83.42 Hypomagnesemia; E83.51 Hypocalcemia; I10 Essential (primary) hypertension; E78.5 Hyperlipidemia, unspecified; G25.81 Restless legs syndrome; Z87.891 Personal history of nicotine dependence; Z79.899 Other long term (current) drug therapy; Z88.1 Allergy status to other antibiotic agents; Z88.7 Allergy status to serum and vaccine

== ENCOUNTER 2024-12-25 11:00 | Inpatient (IN) ==
--- NOTE | 2024-12-25 11:22 | Emergency Department Note ---
Impression & Plan Acute hypoxic respiratory failure, Pulmonary emboli ED Provider Note NAME: TWIN BURROWS AGE: 84 SEX: F : 1940 ARRIVES VIA: Walk-In INFORMANT: Patient ED PROVIDER(S): Michael Mujica DO CHIEF COMPLAINT: Shortness of breath and palpitations HPI: Patient is an 84-year-old female with a past medical history of sepsis, hyperlipidemia, rectal cancer, fatigue, on chronic steroids who presents to the ER for feeling her heart race. present bedside provides additional history and notes that her heart rate has been above 100 for the past week. She has noticed it for the past 3 to 4 days really bad. She notes that now she is becoming lightheaded and really short of breath with any kind of movement. She can no longer walk down her driveway. Denies any chest pain. No belly pain, nausea, vomiting, or diarrhea. No dysuria, urgency, or frequency. No other exacerbating or remitting factors. She denies any recorded fevers at home. No cough or congestion. ADDITIONAL HISTORY OBTAINED: Per HPI Chronic Medical/Social Conditions Affecting Care: Per HPI PAST MEDICAL HISTORY:See Below PAST SURGICAL HISTORY:See Below FAMILY HISTORY:See Below SOCIAL HISTORY:See Below HOME MEDICATIONS:See Below ALLERGIES:See Below VITALS:See Below PHYSICAL EXAMINATION: GENERAL: Sitting up in bed, alert, well appearing, well nourished, no distress, non-toxic EYE EXAM: normal conjunctiva. OROPHARYNX: no exudate, no erythema, lips, buccal mucosa, and tongue normal and mucous membranes are moist NECK: supple, no nuchal rigidity, no adenopathy, non-tender LUNGS: Clear to auscultation. Normal chest wall mechanics HEART: Tachycardic, S1 normal and S2 normal ABDOMEN: abdomen soft, non-tender, normo-active bowel sounds, no masses, no rebound or guarding. UPPER EXTREMITIES: upper extremities are grossly normal. LOWER EXTREMITIES: No pitting edema. NEURO EXAM: Normal sensorium, cranial nerves II-XII grossly intact, normal speech, no gross weakness of arms, no gross weakness of legs. No drift. Finger to nose intact. Gross sensation intact. MEDICAL DECISION MAKING: Patient is an 84-year-old female who presents to the ER for shortness of breath. IVs were established blood work was obtained. She was found to be hypoxic. She was placed on 2 L nasal cannula. No leukocytosis or anemia. D-dimer was significantly elevated at 5000. VBG with a pH of 7.45. BMP with LFTs bilirubin was unremarkable. Troponin was not elevated. TSH was unremarkable. UA with small amount of ketones. Chest x-ray was unremarkable. CT angio showed bilateral PEs. Patient was placed on a heparin drip and bolus. Discussed case with the hospitalist and was admitted for further workup of her hypoxia and bilateral PEs. Consults/Care Managements Discussions: Per [facility] Triage Nursing notes reviewed. Limited review of prior medical records performed Vital Signs: reviewed and remarkable for no significant abnormalities Differential diagnosis: Differential diagnoses includes but is not limited to pneumonia, bronchitis, COPD/Asthma exacerbation, pneumothorax, pulmonary embolism, congestive heart failure, acute coronary syndrome ER treatment provided: See below Diagnostics interpreted by me include EKG and cardiac monitoring as listed below: -Cardiac Monitoring: An order was placed for continuous cardiac monitoring. The monitor shows a rate of 125 with sinus rhythm. -ECG: Sinus tachycardia rate of 126 Left axis No PVCs QTc 417 Inferior Q waves No significant change from previous performed last month -Laboratory studies:Interpreted by me as stated above in [facility] and shown below. Imaging studies: Xrays: As interpreted by me: Portable AP upright 1 view of the chest shows no focal infiltrate CTs show: CT angio chest shows bilateral PEs Procedures:none Critical Care: I have personally spent 40 minutes of critical care time in the direct management of this patient. This includes bedside care, interpretation of diagnostic studies, and testing, discussion with consultants, patient, and family members, and other required patient management activities. This 40 minutes is in excess of all separately billable procedures. Past Med/Surg History Problem List (Updated 12/25/24 @ 17:23 by Michael Mujica DO) Pulmonary emboli (Acute) Acute hypoxic respiratory failure (Acute) Pulmonary embolism History of temporal artery biopsy (11/10/24) Left Temporal Artery Biopsy(Left) - Luis Carrillo DO [facility] (current) use of systemic steroids Fatigue (Acute) Hypoxia (Acute) Endometrial polyp Rectal cancer (Chronic) HLD (hyperlipidemia) (Chronic) Keratoconus (Chronic) Acute respiratory failure with hypoxia Febrile Positive serology for Erlichiosis Sepsis Medical History (Updated 12/25/24 @ 17:23 by Michael Mujica DO) Prediabetes Acute cephalic vein thrombosis Family history of polymyalgia rheumatica Elevated sed rate Sinus tachycardia Surgical History History of temporal artery biopsy (11/10/24) Left Temporal Artery Biopsy(Left) - Luis Carrillo, History of sinus surgery History of back surgery lower History of cataract surgery Family History Mother Breast cancer Father Myocardial infarction Social History Smoking Status: Never smoker Tobacco Type: Cigarettes Age Quit Using Tobacco: 50; Do You Dip or Chew Tobacco: No; Hx Alcohol Use: Yes Alcohol type: wine and hard liquor Hx Substance Use: No Preferred Language: Wolof Communication Ability: Effective Archery Equipment Repairer Required: No Beliefs That Will Affect Care: None Current Living Situation: Spouse Feels Safe at Home: Yes Assistive Devices: Walker Allergies Allergies Allergy/AdvReac Type Severity Reaction Status Date / Time Penicillins Allergy Severe ANAPHYLAXIS-SEE Verified 12/25/24 15:05 COMMENT tetanus toxoid, adsorbed Allergy Intermediate ANAPHYLAXIS Verified 12/25/24 15:05 metoprolol AdvReac Severe irregular Verified 12/25/24 15:05 heartrate aspirin AdvReac Mild upset Verified 12/25/24 15:05 stomach Home Meds Home Medications Medication Instructions Recorded Confirmed krill oil 500 mg capsule 500 mg PO DAILY 08/12/24 12/25/24 atorvastatin 40 mg tablet 40 mg PO QPM 11/02/24 12/25/24 cholecalciferol (vitamin D3) 50 50 mcg PO DAILY 11/02/24 12/25/24 mcg (2,000 unit) tablet (Vitamin D3) coenzyme Q10 100 mg capsule (Co 100 mg PO DAILY 11/02/24 12/25/24 Q-10) multivitamin 1 tab PO QAM 11/02/24 12/25/24 diazepam 5 mg tablet 5 mg PO HS PRN Anxiety/Sleep 12/25/24 12/25/24 diltiazem HCl 180 mg 180 mg PO DAILY 12/25/24 12/25/24 capsule,extended release 24 hr prednisone 5 mg tablet 2.5 mg PO DAILY 12/25/24 12/25/24 Previous Rx's Medication Instructions Recorded pantoprazole 40 mg tablet,delayed 40 mg PO QAM #30 tabs 11/10/24 release Results & Data (ED) Vital Signs Vital Signs - 24 hr 12/25/24 11:03 12/25/24 11:15 12/25/24 11:36 Temperature 37.7 C H Temperature Source Temporal Artery Scan Pulse Rate 130 H 129 H Respiratory Rate 24 26 H Respiratory Effort / Characteristics Spontaneous Short of Breath Blood Pressure 134/87 112/76 Blood Pressure Mean 102 93 Pulse Oximetry 93 Oxygen Delivery Method Room Air Oxygen Flow Rate Sepsis Recent Fever Within 48 Hours No Sepsis New/Unexplained Change in Mental Status N/A Sepsis Action Taken by Nursing No Action Required Oxygen Flow Rate - Titration Pulse Oximetry Post Tiitration 12/25/24 11:36 12/25/24 11:39 12/25/24 11:42 Temperature Temperature Source Pulse Rate 124 H 123 H Respiratory Rate 28 H 29 H Respiratory Effort / Characteristics Blood Pressure 112/76 Blood Pressure Mean 93 Pulse Oximetry 90 92 Oxygen Delivery Method Oxygen Flow Rate Sepsis Recent Fever Within 48 Hours Sepsis New/Unexplained Change in Mental Status Sepsis Action Taken by Nursing Oxygen Flow Rate - Titration Pulse Oximetry Post Tiitration 12/25/24 11:43 12/25/24 11:47 12/25/24 11:51 Temperature Temperature Source Pulse Rate 133 H Respiratory Rate 21 Respiratory Effort / Characteristics Spontaneous Short of Breath Blood Pressure Blood Pressure Mean Pulse Oximetry 92 95 Oxygen Delivery Method Room Air Nasal Cannula Oxygen Flow Rate 4 Sepsis Recent Fever Within 48 Hours Sepsis New/Unexplained Change in Mental Status Sepsis Action Taken by Nursing Oxygen Flow Rate - Titration Pulse Oximetry Post Tiitration 12/25/24 12:00 12/25/24 12:06 12/25/24 12:10 Temperature Temperature Source Pulse Rate 116 H 115 H Respiratory Rate 27 H Respiratory Effort / Characteristics Blood Pressure Blood Pressure Mean Pulse Oximetry 93 84 L Oxygen Delivery Method Room Air Oxygen Flow Rate 0 Sepsis Recent Fever Within 48 Hours Sepsis New/Unexplained Change in Mental Status Sepsis Action Taken by Nursing Oxygen Flow Rate - Titration 4 Pulse Oximetry Post Tiitration 92 12/25/24 12:12 12/25/24 13:00 12/25/24 13:10 Temperature Temperature Source Pulse Rate 120 H Respiratory Rate 22 22 Respiratory Effort / Characteristics Blood Pressure 130/102 H 139/93 Blood Pressure Mean 119 118 Pulse Oximetry 97 95 92 Oxygen Delivery Method Nasal Cannula Nasal Cannula Oxygen Flow Rate 4 4 Sepsis Recent Fever Within 48 Hours Sepsis New/Unexplained Change in Mental Status Sepsis Action Taken by Nursing Oxygen Flow Rate - Titration Pulse Oximetry Post Tiitration 12/25/24 13:30 12/25/24 14:30 Temperature Temperature Source Pulse Rate 112 H Respiratory Rate 20 22 Respiratory Effort / Characteristics Blood Pressure 142/107 H 117/87 Blood Pressure Mean 112 97 Pulse Oximetry 92 94 Oxygen Delivery Method Nasal Cannula Nasal Cannula Oxygen Flow Rate 4 Sepsis Recent Fever Within 48 Hours Sepsis New/Unexplained Change in Mental Status Sepsis Action Taken by Nursing Oxygen Flow Rate - Titration Pulse Oximetry Post Tiitration Laboratory Data 12/25/24 11:47 12/25/24 11:47 Lab Results 12/25/24 12/25/24 12/25/24 Range/Units 11:30 11:47 12:43 WBC 10.45 (4.8-10.8) K/ul RBC 4.84 (4.20-5.40) M/uL Hgb 15.2 (12.0-16.0) g/dl Hct 45.7 (37.0-47.0) % MCV 94.4 (80.0-100.0) fL MCH 31.4 (25.0-34.0) pg MCHC 33.3 (32.0-36.0) g/dL RDW Std Deviation 57.0 H (36.4-46.3) fL RDW Coeff of Anne-Marie 16.5 H (11.5-14.5) % Plt Count 190 (130-400) K/uL MPV 10.0 (9.4-12.4) fL Immature Gran % (Auto) 0.6 % Neut % (Auto) 69.2 % Lymph % (Auto) 19.5 % Elbert % (Auto) 9.6 % Eos % (Auto) 0.5 % Baso % (Auto) 0.6 % Neut # (Auto) 7.24 H (1.40-6.50) K/uL Lymph # (Auto) 2.04 (1.20-3.40) K/uL Elbert # (Auto) 1.00 H (0.11-0.59) K/uL Eos # (Auto) 0.05 (0.00-0.50) K/uL Baso # (Auto) 0.06 (0.00-0.20) K/uL Immature Gran # (Auto) 0.06 (0.01-0.20) K/uL PT 10.9 (9.0-12.0) Seconds INR 1.0 (0.9-1.1) D-Dimer 5200 H* (0-500) ug/L FEU VBG pH 7.45 H (7.36-7.41) VBG pCO2 39 (38-50) mmHg VBG pO2 21 mmHg VBG HCO3 27 mmol/L VBG O2 Saturation < 60.0 % VBG Base Excess 3.0 mEq/L Sodium 140 (136-145) mmol/L Potassium 4.2 (3.5-5.1) mmol/L Chloride 103 (98-107) mmol/L Carbon Dioxide 27 (21-32) mmol/L Anion Gap 10 (3-11) BUN 14 (6-23) mg/dl Creatinine 0.92 (0.6-1.2) mg/dl Est Cr Clr Drug Dosing 35.4 ml/min eGFR 61.40 BUN/Creatinine Ratio 15.2 (10-20) Glucose 100 H (70-99(Fasting)) mg/dl Lactate Cancelled 1.6 Calcium 9.5 (8.6-10.3) mg/dl Magnesium 1.9 (1.7-2.4) mg/dl Total Bilirubin 0.9 (0.2-1.0) mg/dl Direct Bilirubin 0.2 (0-0.2) mg/dl AST 23 (13-39) U/L ALT 20 (7-52) U/L Alkaline Phosphatase 79 (34-104) U/L Troponin I High Sens 9.7 (0-14) pg/ml Total Protein 7.3 (6.0-8.3) gm/dl Albumin 4.3 (3.4-5.0) gm/dl Procalcitonin 0.09 (0-0.5) ng/ml TSH 1.407 (0.300-4.500) uIu/ml Urine Color Yellow Urine Appearance Clear (Clear) Urine pH 8.5 H (4.5-7.5) Ur Specific [place] 1.025 (1.000-1.030) Urine Protein Negative (Negative) Urine Glucose (UA) Negative (Negative) Urine Ketones Trace H (Negative) Urine Blood Negative (Negative) Urine Nitrite Negative (Negative) Urine Bilirubin Negative (Negative) Urine Urobilinogen Negative (Negative) Ur Leukocyte Esterase Negative (Negative) Urine Comment Administered Medications Heparin Sodium/Dextrose (Heparin 05362 Unit/500 Ml D5w) 25,000 units in 500 mls @ 18 mls/hr IV .Q24H ISABEL; Protocol Stop: 01/24/25 12:59 Last Admin: 12/25/24 14:00 Dose: 900 units/hr, 18 mls/hr Documented By: NAY Co-signed By: STEPHANIE Discontinued Medications Heparin Sodium (Porcine) (Heparin Sod (Porcine) 1000 Unit/Ml) 1 units IV NOW ONE Stop: 12/25/24 13:01 Last Admin: 12/25/24 13:59 Dose: 4,000 units Documented By: NAY Co-signed By: STEPHANIE Heparin Sodium/Dextrose (Heparin Iv Adult Wt-Based Standard W/ Initial Bolus Protocol) 1 each IV NOW STA; Protocol Stop: 12/25/24 12:46 Last Admin: 12/25/24 14:01 Dose: Not Given Documented By: NAY Sodium Chloride (Nss) 1,000 mls @ 999 mls/hr IV .Q1H1M ONE Stop: 12/25/24 12:17 Last Infusion: 12/25/24 12:54 Dose: Infused Documented By: Admin: 12/25/24 11:50 Dose: 999 mls/hr Documented By: NAY Sodium Chloride (Nss) 500 mls @ 999 mls/hr IV .Q31M ONE Stop: 12/25/24 13:16 Last Infusion: 12/25/24 14:41 Dose: Infused Documented By: Admin: 12/25/24 13:59 Dose: 999 mls/hr Documented By: NAY Ioversol (Optiray 320 125ml) 120 ml IV ONCE ONE Stop: 12/25/24 12:17 Last Admin: 12/25/24 12:17 Dose: 120 ml Documented By: TENZIN Imaging Data Radiologist's Impression: Chest X-Ray 12/25/24 11:18 SINGLE VIEW CHEST CLINICAL HISTORY: Sepsis FINDINGS: An AP, portable, upright chest radiograph is compared to study dated 11/07/2024 and correlated with chest CT dated 11/02/2024. The examination is degraded by portable technique and patient rotation. The heart is enlarged and. The pulmonary vasculature is noncongested. Chronic interstitial thickening is similar to previous. There is bibasilar scarring/atelectasis. No airspace consolidation or large pleural effusion is identified. No pneumothorax is seen. The skeletal structures are osteopenic. The bony thorax is grossly intact. IMPRESSION: Cardiomegaly with no acute cardiopulmonary abnormality identified. ACT 112: Negative or not required by law. Electronically signed by: Alfa Solano M.D. 12/25/2024 11:43 AM Chest CTA 12/25/24 11:52 CT ANGIOGRAM OF THE CHEST CLINICAL HISTORY: Shortness of breath. Tachycardia. Evaluate for pulmonary embolus. COMPARISON STUDY: Chest CT November 02, 2024. Chest radiograph performed earlier today. TECHNIQUE: Following the IV administration of 120 cc of Optiray 320, CT angiogram of the chest was performed from the upper abdomen to the thoracic inlet utilizing the pulmonary embolus protocol. Images are reviewed in the axial, sagittal, and coronal planes. 3-D MIPS images are created and assessed. IV contrast was administered without complication. A dose lowering technique was utilized adhering to the principles of ALARA. CT DOSE: 662.28 mGy.cm FINDINGS: Numerous acute appearing bilateral lobar, segmental and subsegmental pulmonary emboli are present. No saddle pulmonary embolus is identified. There is no CT evidence for right heart strain. The heart is mildly enlarged. No pneumothorax or pleural effusion is present. Subpleural groundglass opacities favor atelectasis. Linear density suggests atelectasis. No pulmonary infarct is identified. There are no pulmonary nodules. Visualized portions of the upper abdomen are unremarkable. IMPRESSION: 1. Numerous acute appearing bilateral lobar, segmental and subsegmental pulmonary emboli. No CT evidence for right heart strain. No pulmonary infarct. No central pulmonary embolus. 2. Cardiomegaly. ACT 112: Negative or not required by law. Electronically signed by: Ace Michaels M.D. 12/25/2024 12:37 PM Discharge Plan Visit Data Chief Complaint: Cardiac Assessment Stated Complaint: HEART RACING,SOB,LIGHTHEADED,BALANCE ED Provider: Michael Mujica Discharge Problem: Acute hypoxic respiratory failure, Pulmonary emboli Patient Disposition: Admitted As Inpatient Condition: Serious Discharge Instructions Interventions: ED Discharge Assessment Last Done: 12/25/24 15:09 Discharge Problem: Pulmonary emboli Qualifiers: Pulmonary embolism type: unspecified Chronicity: acute Acute cor pulmonale presence: unspecified Qualified Code(s): I26.99 - Other pulmonary embolism without acute cor pulmonale
--- NOTE | 2024-12-25 11:44 | XRay Report ---
SINGLE VIEW CHEST CLINICAL HISTORY: Sepsis FINDINGS: An AP, portable, upright chest radiograph is compared to study dated 11/07/2024 and correlat ed with chest CT dated 11/02/2024. The examination is degraded by portable technique and patient rotat ion. The heart is enlarged and. The pulmonary vasculature is noncongested. Chronic interstitial thic kening is similar to previous. There is bibasilar scarring/atelectasis. No airspace consolidation or large pleural effusion is identified. No pneumothorax is seen. The skeletal structures are osteopenic . The bony thorax is grossly intact. IMPRESSION: Cardiomegaly with no acute cardiopulmonary abnormality identified. ACT 112: Negative or not required by law. Electronically signed by: Alfa Solano M.D. 12/25/2024 11:43 AM
[2024-12-25] MEDS: SODIUM CHLORIDE 0.9% 1,000 ML IV ONE (11:50)
[2024-12-25 11:55] LABS: Base Excess VBG 3.0 mEq/L; HCO3 VBG 27 mmol/L; Oxygen Saturation VBG < 60.0 %; PCO2 VBG 39 mmHg (38-50); PO2 VBG 21 mmHg; pH VBG 7.45 (7.36-7.41)
[2024-12-25 12:02] LABS: Hematocrit (blood only) 45.7 % (37.0-47.0); Hemoglobin 15.2 g/dl (12.0-16.0); Immature Granulocytes # (auto) 0.06 K/uL (0.01-0.20); Immature Granulocytes % (auto) 0.6 %; Mean Corpuscular Hemoglobin 31.4 pg (25.0-34.0); Mean Corpuscular Volume 94.4 fL (80.0-100.0); Platelet Count 190 K/uL (130-400); RDW Standard Deviation 57.0 fL (36.4-46.3); Red Blood Count 4.84 M/uL (4.20-5.40); White Blood Count 10.45 K/ul (4.8-10.8)
[2024-12-25] MEDS: OPTIRAY 320 125ml IV ONE (12:17)
[2024-12-25 12:19] LABS: Alanine Aminotransferase 20.0 U/L (7-52); Alkaline Phosphatase 79.0 U/L (34-104); Anion Gap 10.0 (3-11); Bilirubin,Total 0.9 mg/dl (0.2-1.0); Blood Urea Nitrogen 14.0 mg/dl (6-23); Calcium 9.5 mg/dl (8.6-10.3); Carbon Dioxide 27.0 mmol/L (21-32); Chloride 103.0 mmol/L (98-107); Creatinine Clr Calc Pharmacy 35.4 ml/min; Glucose 100.0 mg/dl (70-99(Fasting)); Magnesium 1.9 mg/dl (1.7-2.4); Potassium 4.2 mmol/L (3.5-5.1); Sodium 140.0 mmol/L (136-145); Total Protein 7.3 gm/dl (6.0-8.3)
[2024-12-25 12:34] LABS: Thyroid Stimulating Hormone 1.407 uIu/ml (0.300-4.500)
[2024-12-25 12:38] LABS: INR 1.0 (0.9-1.1); Prothrombin Time 10.9 Seconds (9.0-12.0)
--- NOTE | 2024-12-25 12:40 | CT Scan Report ---
CT ANGIOGRAM OF THE CHEST CLINICAL HISTORY: Shortness of breath. Tachycardia. Evaluate for pulmonary embolus. COMPARISON STUDY: Chest CT November 02, 2024. Chest radiograph performed earlier today. TECHNIQUE: Following the IV administration of 120 cc of Optiray 320, CT angiogram of the chest was pe rformed from the upper abdomen to the thoracic inlet utilizing the pulmonary embolus protocol. Images are reviewed in the axial, sagittal, and coronal planes. 3-D MIPS images are created and assessed. I V contrast was administered without complication. A dose lowering technique was utilized adhering to the principles of ALARA. CT DOSE: 662.28 mGy.cm FINDINGS: Numerous acute appearing bilateral lobar, segmental and subsegmental pulmonary emboli are p resent. No saddle pulmonary embolus is identified. There is no CT evidence for right heart strain. Th e heart is mildly enlarged. No pneumothorax or pleural effusion is present. Subpleural groundglass op acities favor atelectasis. Linear density suggests atelectasis. No pulmonary infarct is identified. T here are no pulmonary nodules. Visualized portions of the upper abdomen are unremarkable. IMPRESSION: 1. Numerous acute appearing bilateral lobar, segmental and subsegmental pulmonary emboli. No CT evide nce for right heart strain. No pulmonary infarct. No central pulmonary embolus. 2. Cardiomegaly. ACT 112: Negative or not required by law. Electronically signed by: Ace Michaels M.D. 12/25/2024 12:37 PM
[2024-12-25 12:54] LABS: Appearance Urine Clear (Clear); Glucose Urine UA Negative (Negative)
--- NOTE | 2024-12-25 13:51 | History & Physical Report ---
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 ?Could have inflammation-driven and/or steroid induced hypercoagulability in context of suspected vasculitis, increased clotting risk from prednisone w/ increased factor VIII and von Willebrand factor, reduced fibrinolysis, endothelial dysfunction, possible missed thrombophilia. Note per discussion w/ patient/, patient had been hypoxic at home to 7- 80s for the past 2-3 days which could also increase risk given hypoxia induced vasoconstriction and endothelial dysfunction and oxidative stress, along with increased erythropoietin production/thickened blood and systemic inflammation could also be contributing. Note prior hospitalization did have normal EF on ECHO and CTA which was negative for PE. Admit to telemetry Continue heparin gtt Hypercoag labs as able have been sent - ?benefit from referal to coag clinic [place]. Can also touch base w/ coag clinic provider in Am for discussion Blood cx send from ER for slight temp/tachycardia but suspect 2nd to PEs Supplemental O2 as needed Check ECHO EKG w/ CP if occurs. Troponin / and denies CP at this time Further orders pending results of testing Possible transition to oral anticoagulation in AM pending testing Protonix for GI proph Likely need for c-scope for screening purposes as ~5yrs from prior w/ hx rectal ca, consideration PET per rheum as well. Does have hx thyroid nodule aspiration x 2, ~8yrs ago CBC, BMP, mag, PTT/INR in AM #Tachycardia- suspected 2nd to above. Recent inc in diltiazem by PCP. Continue prior 30mg BID to prevent over treatment as suspect 2nd to above #Suspected PMR/GCA- prior admission for such. Patient tapering prednisone 2.5mg presently until Saturday. Suspect still could have been + despite reports negative biopsy. #HLD- continue atorvastatin 40mg daily Dispo: admit to telemetry on heparin gtt, echo History of Present Illness Primary Care Provider: Maria De Jesus Knxo, DO 84yo female with PMHx significant for sepsis, rectal ca, chronic steroids, HLD presented to ER with feeling like heart racing and HR above 100 for ~1 week. Increased over past 3-4 days with reports lightheaded/shortness of breath with movement, no longer can walk down her driveway. No belly pain, nausea/vomiting, diarrhea. Recent admission: Notable was just inpatient in October for fatigue/weakness/headaches/poor appetite and elevated GORDON/CRP but family hx PMR and concerning for temporal arteritis and was sent on steroids with plan to follow up with rheumatology at discharge. ECHO during that admission w/ normal EF 60-65% with mild MR but no wma. She did have sinus tachycardia during that time and did have acute left arm cephalic vein thrombosis seen on LUE doppler w/ risk factors w/ suspected vasculitis and numerous blood draws and was discharged on Lovenox SQ once daily for 2 weeks post-discharge. She did have some hypoxia earlier in the stay but had rapidly resolved and O2 sats leading up to discharge were normal and also had a CTA chest during that admission which did not note any PE at that time. Did have hx R sided thyroid nodule s/p nodule aspiration x 2 (last being ~ 8 yrs ago) Review rheumatology note in follow up with trial tocilizumab added at the END of October however prior studies noting such demonstrating significant reduction of hypercoagulable state however patient reports she did not ever start this as she reports "biopsy was negative for GCA and expensive medication and while grants available didn't want to take away from someone else who needs it. " Dr Mccormack note w/ recs for "With her previous history of malignancy, check PET scan for metastatic disease not identified with current imaging" Hx rectal ca but no findings on CTAP last admission. She notes she did NOT get this done due to not having good interaction with Dr Mccormack. Hx ddimer elevation in 2018 when had anaplasmosis/ehrlichiosis but no prior hx PE/DVT. Current presentation: On admission, tachy to 110-120s, temp 37.7C, RR 27. Did have some hypoxia to 84%, placed on O2. Presently 97% on NC. Reports breathing improved but that she had been in the 70-80s for the past 3-4 days on home pulse oximetry and then to the 60-70s last evening and thought about renting home oxygen but they discussed w/ their pharmacist today who recommended she come into the ER. She reports Dr Knox had increased her diltiazem for elevated HR but reports made no difference. Per , on prednisone and on 2.5mg until Saturday. Patient states she hates being on these. Discussed Chest CTA on admission noting numerous acute appearing bilateral lobar, segmental and subsegmental PE. No evidence for R heart strain or infarct. No central PE. Cardiomegaly is noted. Started/continued on heparin gtt. No issues at present. Denies recent long travel/flights, no prolonged immobilization. No hx estrogen/hormone replacement. Hx rectal ca s/p surgical resection 10 years ago at [facility] and had c-scope ~5yrs ago. Did not require any chemo/XRT and reports clean resection. Discussed did send hypercoagulable labs but will need ANTI-III once off and potential follow up with coagulation clinic at discharge. She notes she got an rx for Doxy from her PCP in mid November due to where she lives/ticks and concerns similar sx to when she had ehrlichiosis in 2018 and almost from such. She reports she was compliant with her Lovenox shots x 2 wks post op as started inpatient. No recent leg swelling/edema. Questions/concerns addressed. updated at bedside and oral surgery technician in room for ECHO for evaluation. Admission for ongoing heparin gtt, repeat echo for evaluation and further work- up. Allergies Allergy/AdvReac Type Severity Reaction Status Date / Time Penicillins Allergy Severe ANAPHYLAXIS-SEE Verified 12/15/24 11:39 COMMENT tetanus toxoid, adsorbed Allergy Intermediate ANAPHYLAXIS Verified 12/15/24 11:39 metoprolol AdvReac Severe irregular Verified 12/15/24 11:39 heartrate aspirin AdvReac Mild upset Verified 12/15/24 11:39 stomach Home Medications Medication Instructions Recorded Confirmed Type krill oil 500 mg capsule 500 mg PO DAILY 08/12/24 12/15/24 History atorvastatin 40 mg tablet 40 mg PO QPM 11/02/24 12/15/24 History cholecalciferol (vitamin D3) 50 50 mcg PO DAILY 11/02/24 12/15/24 History mcg (2,000 unit) tablet (Vitamin D3) coenzyme Q10 100 mg capsule (Co 0 mg PO DAILY 11/02/24 12/15/24 History Q-10) diltiazem HCl 30 mg tablet 30 mg PO BID 11/02/24 12/15/24 History multivitamin 1 tab PO QAM 11/02/24 12/15/24 History pantoprazole 40 mg tablet,delayed 40 mg PO QAM #30 tabs 11/10/24 12/15/24 Rx release prednisone 10 mg tablet 10 mg PO DAILY #90 tabs 12/07/24 12/15/24 Rx diltiazem HCl 120 mg capsule,24 120 mg PO DAILY 12/15/24 12/15/24 History hr,extended release Past Med/Surg History Problem List (Updated 12/25/24 @ 13:48 by Tanja Orozco PA-C) Pulmonary embolism History of temporal artery biopsy (11/10/24) Left Temporal Artery Biopsy(Left) - Luis Carrillo, 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 Fatigue (Acute) Hypoxia (Acute) Endometrial polyp Rectal cancer (Chronic) HLD (hyperlipidemia) (Chronic) Keratoconus (Chronic) Acute respiratory failure with hypoxia Febrile Positive serology for Erlichiosis Sepsis Medical History (Updated 12/25/24 @ 13:48 by Tanja Orozco PA-C) Prediabetes Acute cephalic vein thrombosis Family history of polymyalgia rheumatica Elevated sed rate Sinus tachycardia Surgical History History of temporal artery biopsy (11/10/24) Left Temporal Artery Biopsy(Left) - Luis Carrillo, History of sinus surgery History of back surgery lower History of cataract surgery Family History Mother Breast cancer Father Myocardial infarction Social History Smoking Status: Never smoker Tobacco Type: Cigarettes Age Quit Using Tobacco: 50; Do You Dip or Chew Tobacco: No; Hx Alcohol Use: Yes Alcohol type: wine and hard liquor Hx Substance Use: No Preferred Language: Lao Communication Ability: Effective Professor Of Communication Required: No Beliefs That Will Affect Care: None Current Living Situation: Spouse Feels Safe at Home: Yes Assistive Devices: Walker Review of Systems Review of Systems: All systems reviewed & are unremarkable except as noted in HPI & below Physical Exam Physical Exam: General: 84yo female sitting up in bed, having labs drawn, NAD, tachy to 100- 120s at times, anxious appearing, on 2L NC HEENT: head atraumatic, normocephalic, mmm, trachea midline Resp: tachypneic to 20s, slightly diminished in the bases with faint bibasilar crackles, no wheezing/rales, no cough, on 2L NC CV: regular/tachycardic, faint systolic murmur, no pitting edema, pulses to legs present/calves supple GI: +BS, soft/NT no ferrari MSK/Neuro: nonfocal, not confused, no slurred speech/facial droop Psych: AOx3, cooperative with exam Results & Data Results & Data Vital Signs (Past 12 Hours) Vital Signs Temp Pulse Resp BP Pulse Ox O2 Del Method O2 Flow Rate 12/25/24 12:12 97 12/25/24 12:10 115 H 12/25/24 12:06 84 L Room Air 0 12/25/24 12:00 116 H 27 H 93 12/25/24 11:51 133 H 21 95 12/25/24 11:47 92 Nasal Cannula 4 12/25/24 11:43 Room Air 12/25/24 11:42 123 H 29 H 92 12/25/24 11:39 124 H 28 H 90 12/25/24 11:36 112/76 12/25/24 11:36 112/76 12/25/24 11:15 129 H 26 H 12/25/24 11:03 37.7 C H 130 H 24 134/87 93 Room Air Laboratory Results 12/25/24 12/25/24 12/25/24 Range/Units 12:43 11:47 11:30 WBC 10.45 (4.8-10.8) K/ul RBC 4.84 (4.20-5.40) M/uL Hgb 15.2 (12.0-16.0) g/dl Hct 45.7 (37.0-47.0) % MCV 94.4 (80.0-100.0) fL MCH 31.4 (25.0-34.0) pg MCHC 33.3 (32.0-36.0) g/dL RDW Std Deviation 57.0 H (36.4-46.3) fL RDW Coeff of Anne-Marie 16.5 H (11.5-14.5) % Plt Count 190 (130-400) K/uL MPV 10.0 (9.4-12.4) fL Immature Gran % (Auto) 0.6 % Neut % (Auto) 69.2 % Lymph % (Auto) 19.5 % [place] % (Auto) 9.6 % Eos % (Auto) 0.5 % Baso % (Auto) 0.6 % Neut # (Auto) 7.24 H (1.40-6.50) K/uL Lymph # (Auto) 2.04 (1.20-3.40) K/uL [place] # (Auto) 1.00 H (0.11-0.59) K/uL Eos # (Auto) 0.05 (0.00-0.50) K/uL Baso # (Auto) 0.06 (0.00-0.20) K/uL Immature Gran # (Auto) 0.06 (0.01-0.20) K/uL PT 10.9 (9.0-12.0) Seconds INR 1.0 (0.9-1.1) D-Dimer 5200 H* (0-500) ug/L FEU VBG pH 7.45 H (7.36-7.41) VBG pCO2 39 (38-50) mmHg VBG pO2 21 mmHg VBG HCO3 27 mmol/L VBG O2 Saturation < 60.0 % VBG Base Excess 3.0 mEq/L Sodium 140 (136-145) mmol/L Potassium 4.2 (3.5-5.1) mmol/L Chloride 103 (98-107) mmol/L Carbon Dioxide 27 (21-32) mmol/L Anion Gap 10 (3-11) BUN 14 (6-23) mg/dl Creatinine 0.92 (0.6-1.2) mg/dl Est Cr Clr Drug Dosing 35.4 ml/min eGFR 61.40 BUN/Creatinine Ratio 15.2 (10-20) Glucose 100 H (70-99(Fasting)) mg/dl Lactate 1.6 Cancelled Calcium 9.5 (8.6-10.3) mg/dl Magnesium 1.9 (1.7-2.4) mg/dl Total Bilirubin 0.9 (0.2-1.0) mg/dl Direct Bilirubin 0.2 (0-0.2) mg/dl AST 23 (13-39) U/L ALT 20 (7-52) U/L Alkaline Phosphatase 79 (34-104) U/L Troponin I High Sens 9.7 (0-14) pg/ml Total Protein 7.3 (6.0-8.3) gm/dl Albumin 4.3 (3.4-5.0) gm/dl Procalcitonin 0.09 (0-0.5) ng/ml TSH 1.407 (0.300-4.500) uIu/ml Urine Color Yellow Urine Appearance Clear (Clear) Urine pH 8.5 H (4.5-7.5) Ur Specific [place] 1.025 (1.000-1.030) Urine Protein Negative (Negative) Urine Glucose (UA) Negative (Negative) Urine Ketones Trace H (Negative) Urine Blood Negative (Negative) Urine Nitrite Negative (Negative) Urine Bilirubin Negative (Negative) Urine Urobilinogen Negative (Negative) Ur Leukocyte Esterase Negative (Negative) Urine Comment Diagnostic Findings Chest X-Ray 12/25/24 11:18 SINGLE VIEW CHEST CLINICAL HISTORY: Sepsis FINDINGS: An AP, portable, upright chest radiograph is compared to study dated 11/07/2024 and correlated with chest CT dated 11/02/2024. The examination is degraded by portable technique and patient rotation. The heart is enlarged and. The pulmonary vasculature is noncongested. Chronic interstitial thickening is similar to previous. There is bibasilar scarring/atelectasis. No airspace consolidation or large pleural effusion is identified. No pneumothorax is seen. The skeletal structures are osteopenic. The bony thorax is grossly intact. IMPRESSION: Cardiomegaly with no acute cardiopulmonary abnormality identified. ACT 112: Negative or not required by law. Electronically signed by: Alfa Solano M.D. 12/25/2024 11:43 AM Chest CTA 12/25/24 11:52 CT ANGIOGRAM OF THE CHEST CLINICAL HISTORY: Shortness of breath. Tachycardia. Evaluate for pulmonary embolus. COMPARISON STUDY: Chest CT November 02, 2024. Chest radiograph performed earlier today. TECHNIQUE: Following the IV administration of 120 cc of Optiray 320, CT angiogram of the chest was performed from the upper abdomen to the thoracic inlet utilizing the pulmonary embolus protocol. Images are reviewed in the axial, sagittal, and coronal planes. 3-D MIPS images are created and assessed. IV contrast was administered without complication. A dose lowering technique was utilized adhering to the principles of ALARA. CT DOSE: 662.28 mGy.cm FINDINGS: Numerous acute appearing bilateral lobar, segmental and subsegmental pulmonary emboli are present. No saddle pulmonary embolus is identified. There is no CT evidence for right heart strain. The heart is mildly enlarged. No pneumothorax or pleural effusion is present. Subpleural groundglass opacities favor atelectasis. Linear density suggests atelectasis. No pulmonary infarct is identified. There are no pulmonary nodules. Visualized portions of the upper abdomen are unremarkable. IMPRESSION: 1. Numerous acute appearing bilateral lobar, segmental and subsegmental pulmonary emboli. No CT evidence for right heart strain. No pulmonary infarct. No central pulmonary embolus. 2. Cardiomegaly. ACT 112: Negative or not required by law. Electronically signed by: Ace Michaels M.D. 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
[2024-12-25] MEDS: SODIUM CHLORIDE 0.9% 500 ML IV ONE (13:59)
[2024-12-25] MEDS: HEPARIN SOD (PORCINE) 1000 UNIT/ML IV ONE (13:59)
[2024-12-25] MEDS: HEPARIN 25000 UNIT/500 ML D5W 25,000 UNITS/500 ML BAG IV SCH (14:00)
[2024-12-25] MEDS: Heparin IV Adult Wt-Based Standard w/ INITIAL Bolus Protocol IV STA (14:01)
[2024-12-25] MEDS ORDERED: ACETAMINOPHEN 325 MG TAB PO PRN (16:48)
[2024-12-25] MEDS ORDERED: ONDANSETRON INJ 2 MG/ML 2 ML VIAL IV PRN (16:48)
--- NOTE | 2024-12-25 17:02 | XCELERA ---
[id number]
--- NOTE | 2024-12-25 18:04 | Ultrasound Report ---
EXAM: US venous doppler UE LT CLINICAL HISTORY: Follow up superficial thrombosis. TECHNIQUE: Ultrasound examination of Left upper extremity veins was performed in real time and duplex. One or more of the following were performed- spectral analysis, resistive index, waveform analysis, and pulsed Doppler. COMPARISON: 11/08/2024. FINDINGS: The cephalic vein is seen as incompressible, distended with echogenic occlusive thrombus with no flow extending from the shoulder to the AC fossa greater than 7 cm. Unchanged Normal phasic, non-pulsatile, and spontaneous flow is noted in the left Internal jugular, subclavian, axillary, brachial, basilic, radial, and ulnar veins. Visualized veins of the left upper extremity apart from the cephalic demonstrate normal compressibility. No sonographic evidence of acute deep vein thrombosis (DVT) is detected in the visualized veins of the upper extremity. Compression and Augmentation: All evaluated veins (apart from the cephalic) compress fully with applied transducer pressure. Augmentation of venous flow is noted with distal compression. Additional Findings: The cephalic vein is seen as incompressible, distended with echogenic occlusive thrombus with no flow extending from the upper arm to the AC fossa greater than 7 cm. IMPRESSION: 1. Occlusive proximal cephalic vein superficial thrombosis. unchanged 2. No sonographic evidence of acute DVT was detected at the time of examination. Disclaimer: DVT could be missed early in the disease when clot burden is minimal. For patients with moderate and high pretest probability of DVT and negative ultrasound, the [place] [employer] clinical guidelines recommend testing with a D-dimer assay or repeat ultrasound in 5-7 days. If symptoms worsen, the Society of radiologists in ultrasound recommends repeating the ultrasound even earlier. Electronically signed by Abel Cunningham 12-25-2024 5:55 PM
[2024-12-25] MEDS: PANTOprazole 40 MG/10 ML SYR IV SCH (20:28)
[2024-12-25] MEDS: ATORVASTATIN 40 MG TAB PO SCH (20:29)
[2024-12-25 21:34] LABS: ANTI-Xa, UFH(UnfractionatedHep 0.78 IU/ml (0.3-0.7)
[2024-12-26 03:58] LABS: Hematocrit (blood only) 37.0 % (37.0-47.0); Hemoglobin 12.4 g/dl (12.0-16.0); Mean Corpuscular Hemoglobin 31.6 pg (25.0-34.0); Mean Corpuscular Volume 94.1 fL (80.0-100.0); Platelet Count 159 K/uL (130-400); RDW Standard Deviation 57.3 fL (36.4-46.3); Red Blood Count 3.93 M/uL (4.20-5.40); White Blood Count 9.31 K/ul (4.8-10.8)
[2024-12-26 04:14] LABS: Anion Gap 7.0 (3-11); Blood Urea Nitrogen 10.0 mg/dl (6-23); Calcium 8.0 mg/dl (8.6-10.3); Carbon Dioxide 23.0 mmol/L (21-32); Chloride 108.0 mmol/L (98-107); Creatinine Clr Calc Pharmacy 49.3 ml/min; Glucose 105.0 mg/dl (70-99(Fasting)); Magnesium 1.8 mg/dl (1.7-2.4); Potassium 3.4 mmol/L (3.5-5.1); Sodium 138.0 mmol/L (136-145)
[2024-12-26 04:24] LABS: ANTI-Xa, UFH(UnfractionatedHep 0.78 IU/ml (0.3-0.7)
[2024-12-26 04:35] LABS: INR 1.1 (0.9-1.1); Prothrombin Time 11.4 Seconds (9.0-12.0)
[2024-12-26 04:49] LABS: Partial Thromboplastin Time 82 Seconds (21-31)
[2024-12-26] MEDS: POTASSIUM CHLORIDE CRTAB 20 MEQ TABCR PO STA (07:10)
--- NOTE | 2024-12-26 07:15 | Hospitalist Progress Note ---
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 She was found to have PE on CT chest. She was placed on heparin drip and supplemental O2. #Pulmonary emboli - Vasculitis-induced vs genetic predisposition to hypercoagulability vs idiopathic cause. Note prior hospitalization did have normal EF on ECHO and CTA which was negative for PE. Echo from 12/25 shows no new findings when compared to echo in 10/2024 - Hypercoag and homocysteine labs ordered at admission are pending - Continue heparin gtt with plan to transition to Apixiban 12/27 - Blood cx send from ER - pending - Supplemental O2, titrating to maintain O2 sat 90% or higher. Pt was not using O2 at home prior to admission - Continue Protonix for GI proph - Outpatient follow up may consider need for c-scope for screening purposes as ~5yrs from prior w/ hx rectal ca, consideration PET per rheum as well. Does have hx thyroid nodule aspiration x 2, ~8yrs ago CBC, BMP, PTT/INR in AM #Tachycardia- suspected 2nd to above. Has reduced to 96-107 bmp overnight. - Continue 30mg BID #Suspected PMR/GCA- prior admission for such. - Continue tapering prednisone, given 2.5mg presently until Saturday #HLD- continue atorvastatin 40mg daily Dispo: Med telemetry on heparin gtt Diet: heart healthy Code Full Admission and Anticipated Discharge Date Admission Date: December 25, 2024 Supervising Physician Co-Signing Physician Notes ATTESTATION I also saw the patient and confirmed seals portions of the history and exam. I agree with the impression and plan in the resident documentation, and as summarized below. This morning, patient feels better in terms of her breathing but still requires O2. We reviewed her recent medical history and appointments in detail. She is just about tapered off of her steroids for presumed GCA (clinically consistent symptoms with elevated ESR but negative biopsy); she had side effects with prednisone so glad to be tapering. She saw rheumatology in follow up (note reviewed). Follows with PCP Abilio. EXAM 120/82, 99, 20 A/O. NAD CV regular Lungs CTA LE without edema or tenderness. DATA Labs Normal CBC K = 3.4 Hypercoag panel pending from admission crp = 0.89 upon admission (peaked 18.44 on 11/07/24) Imaging Left UE occlusive proximal cephalic vein superficial thrombus No acute DVT of LUE Chest CT with numerous pulmonary emboli. Echocardiogram shows preserved LV function and RVP 30-40 mm Hg, no RV dysfunction. Micro Blood cultures from 12/25 no growth at 24 hours. IMPRESSION & PLAN PE Acute respiratory failure with hypoxia Suspected GCA (symptoms with elevated inflammatory markers, negative biopsy) nearing end of prednisone taper History of rectal CA (remote) Check LE Doppler today. This may be helpful in the future to help differentiate old vs new embolic sites. Will try to wean oxygen. Transition to Eliquis, likely tomorrow. Additional per resident documentation Subjective NO acute events over night. Pt resting comfortably during exam. Pt reports having gradually increased SOB with activity yesterday and noting low O2 sats with her home pulse ox. Pt reports today she is feeling better with overall reduction feelings of a racing heart and SOB. Pt denies CP, abdominal pain, N/V/D/C or new myalgias. Review of Systems Review of Systems: As per HPI Physical Exam Physical Exam: General: Pt is sitting up in bed, NAD, on 4L NC HEENT: head atraumatic, normocephalic, mmm, trachea midline Resp: slightly diminished lung sounds in the bases, no wheezing/rales, no cough, on 4L NC CV: RRR, no murmurs noted, no pitting edema, pulses to legs present, calves supple and non tender GI: +BS, soft/NT MSK/Neuro: nonfocal, not confused, no slurred speech/facial droop. Moving all four extremities against gravity Psych: AOx3, cooperative with exam Results & Data Results & Data Vital Signs (Past 12 Hours) Vital Signs Temp Pulse Pulse Resp BP Pulse Ox O2 Del Method 12/26/24 03:48 36.6 C 96 H 18 102/67 90 Nasal Cannula 12/26/24 00:17 37.0 C 104 H 18 98/64 L 92 Nasal Cannula 12/25/24 21:59 115 H 12/25/24 20:00 Nasal Cannula 12/25/24 19:44 36.9 C 102 H 18 103/71 93 Nasal Cannula O2 Flow Rate 12/26/24 03:48 4 12/26/24 00:17 4 12/25/24 21:59 12/25/24 20:00 4 12/25/24 19:44 4 Resident Activity Tracking Resident Involvement: Resident Care Provided Care Provided: Adult Hospital Medicine
[2024-12-26] MEDS: CHOLECALCIFEROL 25 MCG (1000 UNITS) TAB PO SCH (08:20)
[2024-12-26 11:17] LABS: ANTI-Xa, UFH(UnfractionatedHep 0.76 IU/ml (0.3-0.7)
[2024-12-26 17:46] LABS: ANTI-Xa, UFH(UnfractionatedHep 0.61 IU/ml (0.3-0.7)
--- NOTE | 2024-12-26 17:47 | Ultrasound Report ---
Examination: Doppler venous ultrasound of the lower extremity Comparison: None Technique: Grayscale evaluation with compression, spectral flow, and color Doppler assessment of the deep venous system of the leg, from the groin to the knee, as well as the lower leg Findings: The external iliac, common femoral, femoral, popliteal, and posterior tibial veins demonstrate normal compressibility and blood flow. Noncompressibility and loss of color Doppler flow of a branch of the left posterior tibial vein at the mid calf, suggesting occlusive superficial thrombus. Impression: No evidence for DVT of the bilateral lower extremity Noncompressibility and loss of color Doppler flow of a branch of the left posterior tibial vein at the mid calf, suggesting occlusive superficial thrombus. Electronically signed by Reese Rojas 12-26-2024 5:47 PM
--- NOTE | 2024-12-27 06:49 | Discharge Summary ---
Date of Service December 27, 2024 Admission HPI Per Admitting Provider 84yo female with PMHx significant for sepsis, rectal ca, chronic steroids, HLD presented to ER with feeling like heart racing and HR above 100 for ~1 week. Increased over past 3-4 days with reports lightheaded/shortness of breath with movement, no longer can walk down her driveway. No belly pain, nausea/vomiting, diarrhea. Recent admission: Notable was just inpatient in October for fatigue/weakness/headaches/poor appetite and elevated GORDON/CRP but family hx PMR and concerning for temporal arteritis and was sent on steroids with plan to follow up with rheumatology at discharge. ECHO during that admission w/ normal EF 60-65% with mild MR but no wma. She did have sinus tachycardia during that time and did have acute left arm cephalic vein thrombosis seen on LUE doppler w/ risk factors w/ suspected vasculitis and numerous blood draws and was discharged on Lovenox SQ once daily for 2 weeks post-discharge. She did have some hypoxia earlier in the stay but had rapidly resolved and O2 sats leading up to discharge were normal and also had a CTA chest during that admission which did not note any PE at that time. Did have hx R sided thyroid nodule s/p nodule aspiration x 2 (last being ~ 8 yrs ago) Review rheumatology note in follow up with trial tocilizumab added at the END of October however prior studies noting such demonstrating significant reduction of hypercoagulable state however patient reports she did not ever start this as she reports "biopsy was negative for GCA and expensive medication and while grants available didn't want to take away from someone else who needs it. " Dr Mccormack note w/ recs for "With her previous history of malignancy, check PET scan for metastatic disease not identified with current imaging" Hx rectal ca but no findings on CTAP last admission. She notes she did NOT get this done due to not having good interaction with Dr Mccormack. Hx ddimer elevation in 2018 when had anaplasmosis/ehrlichiosis but no prior hx PE/DVT. Current presentation: On admission, tachy to 110-120s, temp 37.7C, RR 27. Did have some hypoxia to 84%, placed on O2. Presently 97% on NC. Reports breathing improved but that she had been in the 70-80s for the past 3-4 days on home pulse oximetry and then to the 60-70s last evening and thought about renting home oxygen but they discussed w/ their pharmacist today who recommended she come into the ER. She reports Dr Knox had increased her diltiazem for elevated HR but reports made no difference. Per , on prednisone and on 2.5mg until Saturday. Patient states she hates being on these. Discussed Chest CTA on admission noting numerous acute appearing bilateral lobar, segmental and subsegmental PE. No evidence for R heart strain or infarct. No central PE. Cardiomegaly is noted. Started/continued on heparin gtt. No issues at present. Denies recent long travel/flights, no prolonged immobilization. No hx estrogen/hormone replacement. Hx rectal ca s/p surgical resection 10 years ago at [place] and had c-scope ~5yrs ago. Did not require any chemo/XRT and reports clean resection. Discussed did send hypercoagulable labs but will need ANTI-III once off and potential follow up with coagulation clinic at discharge. She notes she got an rx for Doxy from her PCP in mid November due to where she lives/ticks and concerns similar sx to when she had ehrlichiosis in 2018 and almost from such. She reports she was compliant with her Lovenox shots x 2 wks post op as started inpatient. No recent leg swelling/edema. Questions/concerns addressed. 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 Admission for ongoing heparin gtt, repeat echo for evaluation and further work- up. Principal Diagnosis Pulmonary embolism Discharge Exam General: Pt is sitting up in bed, NAD HEENT: head atraumatic, normocephalic, mmm, trachea midline Resp: CTAB, no wheezing/rales, no cough, on 0-1 L O2 sats >90% CV: RRR, no murmurs noted, no pitting edema, pulses to legs present, calves supple and non tender GI: +BS, soft/NT MSK/Neuro: nonfocal, not confused, no slurred speech/facial droop. Moving all four extremities against gravity Psych: AOx3, cooperative with exam Discharge Data Allergies Allergy/AdvReac Type Severity Reaction Status Date / Time Penicillins Allergy Severe ANAPHYLAXIS-SEE Verified 12/25/24 15:05 COMMENT tetanus toxoid, adsorbed Allergy Intermediate ANAPHYLAXIS Verified 12/25/24 15:05 metoprolol AdvReac Severe irregular Verified 12/25/24 15:05 heartrate aspirin AdvReac Mild upset Verified 12/25/24 15:05 stomach Consultations 12/25/24 12:45 ED Decision to Admit Stat Ordered Studies 12/25/24 11:52 CT angio chest PE protocol Stat 12/25/24 15:53 US venous doppler UE LT Routine 12/26/24 10:16 US venous doppler LE BI Routine Hospital Course (1) Pulmonary embolism: (2) Acute respiratory failure with hypoxia: (3) long-term (current) use of systemic steroids: (4) History of temporal artery biopsy: (5) Rectal cancer: Fatou Rose is an 84 yo female with PMH of rectal CA, treated tick born illnesses, and recent work up for giant cell arteritis who presented with progressive tachycardia and hypoxia. She was found to have PE on CT chest. She was placed on heparin drip and supplemental O2. #Pulmonary emboli - Vasculitis-induced vs genetic predisposition to hypercoagulability vs idiopathic cause. Note prior hospitalization did have normal EF on ECHO and CTA which was negative for PE. Echo from 12/25 shows no new findings when compared to echo in 10/2024 - Hypercoag and homocysteine labs ordered at admission are pending - Stop heparin and started 10mg Apixiban BID x 7 days, then 5 mg BID - Blood cx send from ER - No growth after 24 hours - Titrating O2 down to maintain sat 90% or higher. Pt without O2 requirement at home prior to admission - Continue Protonix for GI proph - Venous doppler at B LE shows not signs of DVT. - Outpatient follow up may consider need for c-scope for screening purposes as ~5yrs from prior w/ hx rectal ca, consideration PET per rheum as well. Does have hx thyroid nodule aspiration x 2, ~8yrs ago CBC, BMP, PTT/INR in AM #Tachycardia- suspected 2nd to above. Has reduced to 96-107 bmp overnight. 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 - Continue tapering prednisone, given 2.5mg presently until Saturday #HLD- continue atorvastatin 40mg daily Dispo: Med telemetry on heparin gtt Diet: heart healthy Code Full Total Time Total Time Spent Total Time Spent (In Minutes): Randolph Shreman DO, attending physician, spent 30 minutes myself seeing the patient, reviewing the chart, and documenting today. Discharge Plan Discharge Items Patient Disposition: Home - Self-Care Reason For Visit: PE, SOB Discharge Diagnosis: Pulmonary Embolism Condition on Discharge: Good Activity: Resume your previous activity Non-emergency contact: Primary Care Provider Call non-emergency contact if: your symptoms worsen Follow-up/Referrals: Maria De Jesus Knox, [Primary Care Provider] - (Call the office on Saturday to schedule a follow up appointment) Diet: Regular Addtl Attending Provider Instructions: You were admitted for pulmonary embolism. You were treated with IV heparin, a blood thinner, and placed on supplemental oxygen. Your oxygen saturation has improved to the point where you no longer need supplemental oxygen and we also to switch your blood thinner to an oral medication, Eliquis (apixaban). We will send Eliquis to your pharmacy. You will take 10 mg twice daily for 7 days, then 5mg twice daily. You had your first dose here at the hospital, you ill take your second dose at home tonight. You will start the 5mg dose on 01/03/25. Please follow up with Dr. Knox's office in the next 7-10 days. Thank you for allowing us to assist you with your health care. Pending Studies at Discharge: Yes Studies:: Hypercoagulation studies Stand-Alone Forms: My [facility] [employer], Smoking Cessation Medications and DC Order Prescriptions: New Eliquis 5 mg Tablet 10 mg PO BID Qty: 70 0RF Rx Instructions: Take 10 mg twice daily for 7 days, then start 5mg twice daily. Continued krill oil 500 mg capsule 500 mg PO DAILY pantoprazole 40 mg Tablet,Delayed Release (Dr/Ec) 40 mg PO QAM Qty: 30 2RF atorvastatin 40 mg tablet 40 mg PO QPM multivitamin Tablet 1 tab PO QAM coenzyme Q10 [Co Q-10] 100 mg Capsule 100 mg PO DAILY cholecalciferol (vitamin D3) [Vitamin D3] 50 mcg (2,000 unit) Tablet 50 mcg PO DAILY diltiazem HCl 180 mg capsule,extended release 24hr 180 mg PO DAILY prednisone 5 mg tablet 2.5 mg PO DAILY Patient Comments: As of 12/25/24 pt states she only has 3 more days of this medication left to take per PCP instruction. diazepam 5 mg tablet 5 mg PO HS PRN (Reason: Anxiety/Sleep) Discharge Orders: Discharge Order (Routine); Ordered 12/27/24 Ordered By: Bruna Anne Admission Data Admit Date/Time: 12/25/24 14:41 Attending Provider: Randolph Hogan Admit Provider: Corby Murray Primary Care Provider: Maria De Jesus Knox Other Providers: Corby Murray Other Interventions: Discharge Summary Assessment (RN) Last Done: 12/27/24 13:54 Supervising Physician Co-Signing Physician Notes ATTESTATION I also saw the patient and confirmed seals portions of the history and exam. I agree with the impression and plan in the resident documentation, and as summarized below. We were able to wean her off O2 this morning and she was able to ambulate in the hallway without desaturation. EXAM 112.74, 106 A/O. NAD CV mild tachycardia Lungs CTA LE without edema or tenderness. DATA Labs Normal CBC Na 141, K 3.6, Cr 0.63 Hypercoag panel pending from admission crp = 0.89 upon admission (peaked 18.44 on 11/07/24) Imaging Left UE occlusive proximal cephalic vein superficial thrombus No acute DVT of LUE LE dopplers negative for DVT Chest CT with numerous pulmonary emboli. Echocardiogram shows preserved LV function and RVP 30-40 mm Hg, no RV dysfunction. Micro Blood cultures from 12/25 no growth at 48 hours. 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 Duration of 3-6 months at this point (no previous VTE history), although etiology still suspect and pending blood work and overall clinical picture may dictate longer course (questionable vasculitis). Mild tachycardia not far from her baseline; will need to follow up with PCP Additional per resident documentation Resident Activity Tracking Resident Involvement: Resident Care Provided Care Provided: Adult Hospital Medicine
[2024-12-27 07:30] LABS: Hematocrit (blood only) 38.6 % (37.0-47.0); Hemoglobin 12.9 g/dl (12.0-16.0); Mean Corpuscular Hemoglobin 31.9 pg (25.0-34.0); Mean Corpuscular Volume 95.5 fL (80.0-100.0); Platelet Count 168 K/uL (130-400); RDW Standard Deviation 56.7 fL (36.4-46.3); Red Blood Count 4.04 M/uL (4.20-5.40); White Blood Count 6.96 K/ul (4.8-10.8)
[2024-12-27 07:47] LABS: Anion Gap 8.0 (3-11); Blood Urea Nitrogen 8.0 mg/dl (6-23); Calcium 8.5 mg/dl (8.6-10.3); Carbon Dioxide 25.0 mmol/L (21-32); Chloride 108.0 mmol/L (98-107); Creatinine Clr Calc Pharmacy 55.0 ml/min; Glucose 102.0 mg/dl (70-99(Fasting)); Potassium 3.6 mmol/L (3.5-5.1); Sodium 141.0 mmol/L (136-145)
[2024-12-27 08:02] LABS: ANTI-Xa, UFH(UnfractionatedHep 0.66 IU/ml (0.3-0.7)
[2024-12-27 11:31] VITALS: BP 112/74; TEMP 97.5
[2024-12-27 11:32] VITALS: PULSE 106; RESP 14; O2SAT 95
[2024-12-27] MEDS: APIXABAN 5 MG TABLET PO SCH (11:40)
--- NOTE | 2024-12-28 07:44 | Electrocardiogram Report ---
Test Reason : Blood Pressure : */* mmHG Vent. Rate : 126 BPM Atrial Rate : 126 BPM P-R Int : 138 ms QRS Dur : 62 ms QT Int : 288 ms P-R-T Axes : 22 -47 67 degrees QTcB Int : 417 ms Sinus tachycardia Possible Left atrial enlargement Left axis deviation Inferior infarct (cited on or before 31-Oct-2017) Anterior infarct (cited on or before 31-Oct-2017) Diffuse ST-T wave abnormality Abnormal ECG When compared with ECG of 06-Nov-2024 09:44, QRS axis Shifted left Questionable change in initial forces of Lateral leads Confirmed by Harika Evans ([employer]) on 12/28/2024 7:44:02 AM Referred By: REFERRED SELF Confirmed By: Harika Evans
--- NOTE | 2024-12-28 09:46 | Electrocardiogram Report ---
Test Reason : Blood Pressure : */* mmHG Vent. Rate : 110 BPM Atrial Rate : 110 BPM P-R Int : 130 ms QRS Dur : 66 ms QT Int : 320 ms P-R-T Axes : 31 -44 100 degrees QTcB Int : 433 ms Sinus tachycardia with occasional Premature atrial complexes Left atrial enlargement Left axis deviation Inferior infarct (cited on or before 31-Oct-2017) Abnormal ECG When compared with ECG of 25-Dec-2024 11:15, (unconfirmed) Premature atrial complexes are now Present Criteria for Anterior infarct are no longer Present Inverted T waves have replaced nonspecific T wave abnormality in Lateral leads Confirmed by Harika Evans ([employer]) on 12/28/2024 9:46:47 AM Referred By: REFERRED SELF Confirmed By: Harika Evans
[2024-12-30 12:44] LABS: Lupus Hex Phase (Rflxdonotord) Weak Positive (Negative)
== END 2024-12-27 16:55 | disposition home or self-care (01) | DRG 175 ==
LOC: ED 11:00 → 2S 14:41 → SUATTDRO 14:41 → 2S 15:09